=== PATIENT | male | born 1945 | race Caucasian/White ===

== ENCOUNTER 2017-03-05 07:30 | Day surgery (SDC) | payer BC, MEDICARE ==
[2017-03-04 11:49] VITALS: BMI 25.0
[2017-03-05] MEDS ORDERED: Fentanyl 100 MCG/2 ML VIAL ONE (07:34)
[2017-03-05 09:16] LABS: #Eosinphils 0.4 thou/uL (0.0-0.7); #Lymphocytes 1.4 thou/uL (1.20-3.40); #Monocytes 0.5 thou/uL (0.11-0.59); #Neutrophils 2.1 thou/uL (1.40-6.50); %Basophils 0.7 % (0.0-1.0); %Eosinophils 8.5 % (0.0-10.0); %Lymphocytes 32.2 % (21.0-51.0); %Monocytes 10.7 % (0.0-10.0); Hematocrit 44.3 % (42.0-52.0); Mean Platelet Volume 7.1 fL (7.4-10.4); Red Blood Cell (RBC) Count 4.51 mill/uL (4.70-6.10); White Blood Cell (WBC) Count 4.4 thou/uL (4.8-10.8)
[2017-03-05] MEDS ORDERED: Bupivacaine PF 0.5% 30 ML VIAL ONE (09:20)
[2017-03-05] MEDS ORDERED: Bacitracin Zinc Ointment 30 gm TUBE ONE (09:20)
[2017-03-05] MEDS ORDERED: Betamet Acet/Betamet Na Ph 30 MG/5 ML VIAL ONE (09:20)
[2017-03-05] MEDS ORDERED: Sodium Chloride 0.9% 10 ML ONE (09:57)
--- NOTE | 2017-03-06 10:22 | OP ---
DATE OF PROCEDURE: 03/05/2017 POSTOPERATIVE DIAGNOSIS: Left carpal tunnel syndrome. FINDINGS: Very tight transverse carpal ligament with early flattening without stiffening of the med bela nerve over 1 cm within the carpal canal. SURGEON: Anil Jackson M.D. ANESTHESIA: General LMA technique [place] anesthesia. COMPLICATIONS: None. Injections augmented with the following injection: 1. A 3 mL drip technique Celestone around the nerve with the flat as part. 2. A 12 mL 0.5% Marcaine keya-incisional block. INDICATIONS: Failed conservative treatment, positive diagnostic studies and exam findings. He has had this duration more than 3 years and was wanting to have asymmetrical return with early cure ____ _ pain, and then later return of normal sensation to the tips of the digits. DESCRIPTION OF PROCEDURE: After successful general LMA technique, the limb was prepped and draped. A time out was done appropriately and the limb was identified. He had 12 mL of Marcaine given gaurav g the area where a 2 cm mini incision was outlined, in line with the ring finger and a fpc betwe en Calderon's cardinal line and a point of 8 mm distal to the volar flexion crease. Then, exsanguinat ion and inflation of tourniquet 250 mmHg proceeded and opened this incision and sharp dissection wit h release of transverse carpal ligament. We spread the tissue, placed a small awl retractor, and th en opened with a N[place]alton blade the center portion of the transverse carpal ligament. Reversed the re traction, identified the distal point, opened with a combination of Nondalton blade and tenotomy scisso rs. Reversed the retraction and then visualized the entire proximal , using combination of Risa priya blade and the tenotomy scissors to release this. It was here we noticed that he had no tenosyno vitis and he had flattening of the median nerve in the 1 cm area in the middle of the carpal canal. The motor branch was a type 1 takeoff and it was in excellent condition, did not have secondary com pression. We placed 3 mL of Celestone on the flat portion of the nerve in a drip technique, deflate d tourniquet and obtained hemostasis. We then closed the incision with interrupted 4-0 nylon in a m attress pattern. Bulky dressing was applied and excellent circulation. The patient left the operat ing room without complication.
== END 2017-03-05 11:55 ==
LOC: SDC 07:30
PROVIDERS: ATTEND Orthopaedic Surgery Hand Surgery
PROC: 01N50ZZ Release Median Nerve, Open Approach (ICD-10-PCS; principal; 2017-03-05)
DX: G56.02 Carpal tunnel syndrome, left upper limb (principal); G47.33 Obstructive sleep apnea (adult) (pediatric); K21.9 Gastro-esophageal reflux disease without esophagitis; E78.5 Hyperlipidemia, unspecified; I25.10 Atherosclerotic heart disease of native coronary artery without angina pectoris; I10 Essential (primary) hypertension; M19.90 Unspecified osteoarthritis, unspecified site; Z95.5 Presence of coronary angioplasty implant and graft; Z87.891 Personal history of nicotine dependence; Z90.89 Acquired absence of other organs; Z98.890 Other specified postprocedural states; Z79.01 Long term (current) use of anticoagulants; Z79.899 Other long term (current) drug therapy
CPT/HCPCS: 36415; 85025; A4216; J0131; J0702; J3010; J3490; S0020

== ENCOUNTER 2017-07-15 00:42 | Inpatient (IN) | payer BC, MEDICARE ==
[2017-07-15 01:25] LABS: #Eosinphils 0.4 thou/uL (0.0-0.7); #Monocytes 0.6 thou/uL (0.11-0.59); #Neutrophils 2.4 thou/uL (1.40-6.50); %Basophils 0.2 % (0.0-1.0); %Eosinophils 6.7 % (0.0-10.0); %Lymphocytes 37.3 % (21.0-51.0); %Monocytes 10.5 % (0.0-10.0); %Neutrophils 45.3 % (42.0-75.0); Hemoglobin 14.5 g/dL (14.0-18.0); Mean Corpuscular HGB CONC 34.8 g/dL (32.0-36.0); Mean Corpuscular Hemoglobin 33.2 pg (27.0-31.0); Mean Corpuscular Volume 95.6 fl (80.0-94.0); Mean Platelet Volume 7.1 fL (7.4-10.4); Platelet Count 255 thou/uL (130-400); RBC Distribution Width 11.8 % (11.5-14.5); Red Blood Cell (RBC) Count 4.36 mill/uL (4.70-6.10); White Blood Cell (WBC) Count 5.4 thou/uL (4.8-10.8)
[2017-07-15 01:45] LABS: ALT (SGPT) 32 U/L (8-55); AST (SGOT) 21 U/L (5-34); Albumin 4.2 g/dL (3.4-4.8); Alkaline Phosphatase 73 U/L (40-150); Anion Gap 14 mmol/L (10-20); BUN (Urea Nitrogen) 17 mg/dL (8.4-25.7); Bilirubin, Total 1.3 mg/dL (0.2-1.2); Calc. Creatinine Clearance 0 mL/min (70-130); Calcium 9.4 mg/dL (7.8-10.44); Carbon Dioxide 24 mmol/L (23-31); Chloride 103 mmol/L (98-107); Estimated GFR-MDRD Greater than 90; Globulin 2.8 g/dL (2.4-3.5); Glucose 155 mg/dL (83-110); Potassium 3.9 mmol/L (3.5-5.1); Sodium 137 mmol/L (136-145)
[2017-07-15 01:50] LABS: CKMB 2.2 ng/mL (0-6.6); Troponin I Less than 0.010 ng/mL (< 0.028)
[2017-07-15] MEDS ORDERED: Metoprolol Tartrate 5 MG/5 ML VIAL ONE (03:06)
[2017-07-15] MEDS ORDERED: Adenosine 6 MG/2 ML VIAL ONE ×2 (05:02→05:03)
[2017-07-15 05:49] LABS: Magnesium 2.1 mg/dL (1.6-2.6); Phosphorus 3.2 mg/dL (2.3-4.7)
[2017-07-15 05:54] LABS: Troponin I 0.029 ng/mL (< 0.028)
[2017-07-15] MEDS ORDERED: Mag-Al 1200 mg/1200 mg/30 ML UDCUP PO PRN (06:46)
[2017-07-15] MEDS ORDERED: Loperamide HCl 2 MG CAP PO PRN (06:46)
[2017-07-15] MEDS ORDERED: Chloraseptic Spray 180 ml Bottle PO PRN (06:46)
[2017-07-15] MEDS ORDERED: Milk Of Magnesia 30 ML UDCUP PO PRN (06:46)
[2017-07-15] MEDS ORDERED: Diabetic Tussin 200 MG/10 ML UDCUP PO PRN (06:46)
[2017-07-15] MEDS ORDERED: Sodium Chloride 0.65% Nasal 44 ML BOT EA NARE PRN (06:46)
[2017-07-15] MEDS ORDERED: Ondansetron HCl/PF 4 MG/2 ML Vial IVP PRN (06:46)
[2017-07-15] MEDS ORDERED: Nitroglycerin 0.4 MG TAB (25 Tab Bottle) SL PRN (06:46)
[2017-07-15] MEDS ORDERED: HYDROcodone/Acetaminophen 5/325 mg Tablet PO PRN (06:46)
[2017-07-15] MEDS ORDERED: Acetaminophen 325 MG TAB PO PRN (06:46)
[2017-07-15] MEDS ORDERED: Eucerin (Mineral Oil/Petrolatum,White) 30 gm Jar TOP PRN (06:46)
[2017-07-15] MEDS ORDERED: Ondansetron ODT 4 MG TAB PO PRN (06:46)
[2017-07-15] MEDS ORDERED: Artificial Tears 18 DROP/0.9 ML EA EYE PRN (06:46)
[2017-07-15] MEDS ORDERED: Senokot 8.6 MG TAB PO PRN (06:46)
[2017-07-15] MEDS ORDERED: Zolpidem Tartrate 5 MG TAB PO PRN (06:46)
[2017-07-15] MEDS ORDERED: hydrALAZINE 20 MG/ML VIAL SLOW IVP PRN (06:46)
[2017-07-15] MEDS ORDERED: Loratadine 10 MG TAB PO PRN (06:46)
[2017-07-15] MEDS ORDERED: Diltiazem 125 MG in Sodium Chloride 0.9% 100 ML IVPB SCH (07:00)
--- NOTE | 2017-07-15 07:50 | RAD ---
PORTABLE CHEST 1 VIEW: DATE: 07/15/17. TIME: 12:47 a.m. HISTORY: Palpitations. FINDINGS: Comparison is made with the exam of 02/11/13. The heart size is normal. No confluent areas of consolidation, pneumothorax, or pleural effusions ar e seen. IMPRESSION: No radiographic evidence of acute cardiopulmonary process. POS: [facility]
[2017-07-15] MEDS ORDERED: Enoxaparin Sodium 40 MG/0.4 ML SYRINGE ONE (08:39)
[2017-07-15 08:42] LABS: Troponin I 0.026 ng/mL (< 0.028)
[2017-07-15] MEDS ORDERED: Famotidine 20 MG TAB PO SCH (09:00)
[2017-07-15] MEDS ORDERED: Clopidogrel Bisulfate 75 MG TAB PO SCH (09:00)
[2017-07-15] MEDS ORDERED: Enoxaparin Sodium 40 MG/0.4 ML SYRINGE SC SCH (09:00)
--- NOTE | 2017-07-15 09:04 | CT ---
PRELIMINARY REPORT/[facility]/EMERGENCY AFTER HOURS PROCEDURE: EXAM: CT Angiography Chest With Intravenous Contrast CLINICAL HISTORY: 72 years old, male; Chest pain; C/O palpitations onset around 2230. Described as pounding hard, can h ear his hearbeat in his ears. checked his hr and it was 180. Pt reports some chest tightness wit h earlier pain in his l shoulder and back that has subsided at this time. Pt was recently dx with dick young, took his last abx on wednesday. TECHNIQUE: Axial computed tomographic angiography images of the chest with intravenous contrast using pulmonary embolism protocol. MIP reconstructed images were created and reviewed. Oblique reformatted images were created and reviewed. COMPARISON: No relevant prior studies available. FINDINGS: Pulmonary arteries: No evidence of pulmonary embolism. Aorta: Normal caliber thoracic aorta without dissection or aneurysm. Lungs: No alveolar infiltrate. A few scattered lung bulla. No mass. Pleural space: No pleural fluid collection. No pneumothorax. Heart: Coronary artery calcification. No pericardial effusion. No evidence of RV dysfunction. Bones/joints: Spinal degenerative changes. No acute fracture. No dislocation. Soft tissues: Unremarkable. Lymph nodes: No pathologically enlarged lymph nodes. IMPRESSION: 1. No evidence of pulmonary embolism. 2. No alveolar infiltrate. 3. No pleural fluid collection. Thank you for allowing us to participate in the care of your patient. Dictated and Authenticated by: Pipe Birch MD 07/15/2017 3:52 AM Central Time ([place] & [place]) FINAL REPORT CT PULMONARY ANGIOGRAM WITH IV CONTRAST AND 3D POSTPROCESSING: Date: 07/15/17 FINDINGS/IMPRESSION: I agree with the preliminary report given by Dr. Pipe Birch of [facility]. POS: [facility]
[2017-07-15] MEDS ORDERED: Sodium Chloride 0.9% 1,000 ML IV SCH (09:30)
--- NOTE | 2017-07-15 10:37 | HP ---
PRIMARY CARE PHYSICIAN: Dr. Brennan Valle PRIMARY RN ACUTE: Dr. Oh REASON FOR ADMISSION: Acute SVT/atrial fibrillation. HISTORY OF PRESENT ILLNESS: A 72-year-old male who has a history of hypertension and dyslipidemia wh o was experiencing palpitations before going to sleep around 10:30. He was feeling a pounding heart. He was feeling his heart rate in his ears and head. He called his who is a nurse who checked his vitals. At that time his pulse was 180. He was also experiencing chest tightness and palpitatio ns and dizziness. He denies an incomplete syncope. He denies any shortness of breath. He denies an y associated nausea, vomiting, diaphoresis. The patient denies any excessive caffeinated products. He does not take any beta lynette or calcium channel lynette medication, but he takes blood pressure medication. The patient was recently diagnos ed with walking pneumonia and he took some antibiotic therapy which he has finished. The patient is feeling much better. He denies any fever or chills. He denies any sore throat. He denies any runny nose. He denies any constipation, diarrhea, melena or hematochezia. He denies any UTI symptoms. T he patient feels by himself pretty much very active and healthy. When he came to the emergency room, he was having sinus tachycardia. In the emergency room, the marvin ent was given adenosine 6 mg. He was given a total of 4 liters of IV fluid and he was also given met oprolol 5 mg IV push and subsequently low dose of Cardizem drip was started. Initially, the ER physician suspected SVT, but when I saw this patient in the morning at that time, I noted that his heart rate was irregular and it was more towards atrial fibrillation/flutter. His he art rate was pretty much fluctuating from 120-130s and that is why he was given Cardizem drip. When I saw at that time, the patient was asymptomatic. PAST MEDICAL HISTORY: Hypertension, dyslipidemia, coronary artery disease. PAST SURGICAL HISTORY: Cardiac catheterization with stent placement x2 about 10 years ago, hernia re pair, left shoulder repair, left knee surgery. PAST PSYCHIATRIC HISTORY: Reviewed and negative. SOCIAL HISTORY: The patient is . He lives at home. He drinks alcohol socially. He denies a ny smoking. He denies illicit drug abuse. He lives at home with family. FAMILY HISTORY: No strong family history of premature coronary artery disease, stroke or cancer. ALLERGIES: No known drug allergies. CURRENT HOME MEDICATIONS: Candesartan 16 mg p.o. daily, Dexilant 60 mg p.o. daily, Plavix 75 mg p.o. daily, Lipitor 40 mg p.o. daily. REVIEW OF SYSTEMS: The following complete review of systems was negative, unless otherwise mentioned in the HPI or below: Constitutional: Weight loss or gain, ability to conduct usual activities. Skin: Rash, itching. Eyes: Double vision, pain. ENT/Mouth: Nose bleeding, neck stiffness, pain, tenderness. Cardiovascular: Palpitations, dyspnea on exertion, orthopnea. Respiratory: Shortness of breath, wheezing, cough, hemoptysis, fever or night sweats. Gastrointestinal: Poor appetite, abdominal pain, heartburn, nausea, vomiting, constipation, or diarrhea. Genitourinary: Urgency, frequency, dysuria, nocturia. Musculoskeletal: Pain, swelling. Neurologic/Psychiatric: Anxiety, depression. Allergy/Immunologic: Skin rash, bleeding tendency. Please see my HPI for pertinent positives and negatives. All other review of systems reviewed and ne gative except as mentioned in the HPI. EMERGENCY ROOM COURSE: Patient is given IV fluid 4 liter, metoprolol 5 mg, adenosine 6 mg and Cardi zem drip. PHYSICAL EXAMINATION: VITAL SIGNS: On arrival, blood pressure 122/75, pulse 142, respiratory rate 18, temperature 98.2, sa turation 95% on room air, weight 90.7 kilograms. GENERAL: The patient is currently alert, awake, no obvious acute distress. HEENT: Head; normocephalic, atraumatic. Eyes: Pupils round, reactive to light. Extraocular muscle s intact. ENT: Oropharynx within normal limits. Moist mucous membranes. No oral lesions. No phar yngeal erythema or exudate. NECK: Supple, no JVD, no thyromegaly, no carotid bruit, no jugular venous distention. LUNGS: Clear to auscultation without any rhonchi or rales. CARDIAC: S1, S2 appears irregular, tachycardia, no murmur, no gallop, no rub. ABDOMEN: Soft, bowel sounds present, nontender, nondistended. No organomegaly, no mass, no suprapub ic tenderness. BACK: Unremarkable, no CVA tenderness. EXTREMITIES: Upper extremities; passive movement of all joints are normal. Lower extremities; no ed liset. Good peripheral pulsation. SKIN: No skin rash. HEMATOLOGICAL: No lymphadenopathy. NEUROLOGIC: Nonfocal examination. The patient moves all 4 limbs. Plantar bilateral flexor. PSYCHIATRIC: Normal affect. SIGNIFICANT LABS: The initial EKG done in the emergency room shows sinus tachycardia. CT angio nega tive for pulmonary embolism. Chest x-ray based on my review, no acute cardiopulmonary process. CBC: WBC 5.4, hemoglobin 14.5, platelet 255. BMP; sodium 137, potassium 3.9, chloride 103, carbon dioxide 24, anion gap 14, BUN 17, creatinine 0.7 7, glucose 155, calcium 9.4, phosphorus 3.2, magnesium 2.1. LFTs: AST 21, ALT 32, alkaline phosphatase 73, albumin 4.2, TSH 2.21. D-dimer less than 0.27. Trop onin I 0.010 then 0.029 and then 0.026. ASSESSMENT AND PLAN: 1. Palpitations, likely due to atrial tachyarrhythmia, suspected for supraventricular tachycardia/guerrero praventricular tachycardia with aberrancy or underlying atrial flutter/atrial fibrillation. This pat ient currently, treated in the emergency room, his rate is under control. We will monitor on telemet ry floor. Cardiology will be consulted. We will continue slow rate Cardizem drip to maintain rate c ontrol. The patient will need electrophysiologic evaluation. We will do serial cardiac enzymes x3 t o rule out acute coronary syndrome and echocardiography will be obtained and Cardiology will be consu lted. 2. Elevated troponin, likely due to demand ischemia, 2 sets are negative and 1 set only indeterminat e range. Echocardiography is going to be obtained. We will continue aspirin 325 mg p.o. daily. We will check lipid profile tomorrow morning. 3. Hypertension, but currently low blood pressure. If blood pressure permits, then we will continue Atacand 16 mg p.o. daily. 4. Dyslipidemia, continue Lipitor 40 mg p.o. at bedtime and check lipid profile tomorrow morning. 5. Coronary artery disease with stent. Continue Plavix 75 mg p.o. daily. 6. Gastroesophageal reflux disease. Continue Protonix 40 mg p.o. daily. CODE STATUS: The patient is FULL CODE. The patient's is surrogate decision maker. Disposition plan based on clinical course and cardiology recommendation. We are expecting patient's stay in hospital more than 2 midnights. Plan of care discussed with the patient in detail.
[2017-07-15 10:50] VITALS: BMI 27.6
[2017-07-15] MEDS: Multivit, Therapeutic 1 TAB PO SCH (10:58)
[2017-07-15] MEDS: Fish Oil 1,000 MG CAP PO SCH ×2 (10:58→20:20)
--- NOTE | 2017-07-15 11:25 | CON ---
DATE OF CONSULTATION: 07/15/2017 HISTORY OF PRESENT ILLNESS: The patient is a pleasant 72-year-old gentleman who presented with acute onset of palpitations. The patient has a previous history of coronary artery disease. He underwent PTCA and stent placement in 2005. The patient has done well on medical therapy. He states he acutely developed rapid palpitations. He noted his heart rate was elevated. The patient reported having mild dizziness. The patient did feel mildly dyspneic. PAST MEDICAL HISTORY: 1. Coronary artery disease. 2. Dyslipidemia. 3. Hyperglycemia. PAST SURGICAL HISTORY: Knee surgery, shoulder surgery, hernia repair, and tonsillectomy. SOCIAL HISTORY: He is a nonsmoker. He denies consuming excessive amounts of alcohol. FAMILY HISTORY: There is no strong family history of coronary artery disease. ALLERGIES: None. MEDICATIONS ON ADMISSION: Atacand 16 daily, Dexilant 60 daily, Plavix 75 mg daily, and Lipitor 40 at bedtime. REVIEW OF SYSTEMS: A 10-point system unremarkable. No history of easy bruising or bleeding, bright red blood per rectum. PHYSICAL EXAMINATION: GENERAL: This is a well-developed gentleman in no acute distress. VITAL SIGNS: Blood pressure was 107/77, heart rate is 70, irregular. NECK: Showed no jugular venous distention, no carotid bruits. LUNGS: Clear to auscultation. HEART: Irregular rate and rhythm with a normal S1, S2 with no murmurs. ABDOMEN: Soft, nontender. EXTREMITIES: No edema. SKIN: Warm and dry. NEUROLOGIC: Nonfocal. VASCULAR: Radial pulses are 2+. LABORATORY DATA: White blood count 5.4, hemoglobin 14.5, hematocrit 41.7, platelets 255. His sodium was 137, potassium 3.9, chloride 103, bicarbonate 24 , BUN 17, creatinine 0.77, glucose 155. Troponin was 0.026. TSH is 2.21. EKG revealed him to have atrial flutter with Q-waves suggestive of possible previous inferior infarct. IMPRESSION: 1. New onset atrial flutter/fibrillation. 2. History of coronary artery disease, status post percutaneous transluminal coronary angioplasty and stent placement. 3. Dyslipidemia. This gentleman presents with new onset atrial fibrillation. The patient has a CHADS-VASc score of 3. From a cardiac standpoint, would recommend electrical cardioversion. We will start the patient on beta lynette therapy. We will follow this patient with you through his hospitalization. LIBRADO
[2017-07-15] MEDS ORDERED: PHENYLEPHRINE-NS 100 MCG/ML 10 ML SYRINGE ONE (13:01)
[2017-07-15] MEDS ORDERED: PROPOFOL 200 MG/20 ML VIAL ONE (13:01)
[2017-07-15] MEDS ORDERED: ePHEDrine/0.9% NaCl/PF SYRINGE 50 mg/10 ml ONE (13:01)
[2017-07-15] MEDS ORDERED: ISOVUE-370 76%-LOCM 1 ML ONE (13:23)
[2017-07-15] MEDS ORDERED: PROPOFOL 20 ML ONE (14:21)
--- NOTE | 2017-07-15 15:36 | ECHO ---
TRANSESOPHAGEAL ECHOCARDIOGRAM: DATE OF PROCEDURE: 07/15/17 INDICATION: 73-year-old gentleman with paroxysmal atrial fibrillation. DESCRIPTION OF PROCEDURE: The patient was taken to the PACU. The patient was sedated by anesthesiology. A transesophageal probe was placed in the distal esophagus and stomach. Echocardiographic images were obtained. The transesophageal probe was removed. FINDINGS: 1. Normal left ventricular systolic function. 2. Left atrial enlargement. 3. Normal mitral and aortic valves. 4. Mild mitral regurgitation. 5. Mild tricuspid regurgitation. 6. No thrombus in left atrium or left atrial appendage. 7. Atherosclerotic debris in the descending aorta. IMPRESSION: No formed thrombus in the left atrium or left atrial appendage.
--- NOTE | 2017-07-15 15:39 | OP ---
PROCEDURE NOTE: Date: 07/15/17 PROCEDURE: Electrical cardioversion. INDICATION: This is a 72-year-old gentleman with paroxysmal atrial fibrillation. PROCEDURE DETAILS: The patient was taken to the PACU. The patient was sedated by anesthesiology. The patient was shocked with 200 joules of synchronized electricity. The patient converted to normal sinus rhythm. IMPRESSION: Successful electrical cardioversion.
[2017-07-15] MEDS: Apixaban 5 MG TAB PO SCH (20:20)
[2017-07-15] MEDS ORDERED: Atorvastatin Calcium 20 MG TAB PO SCH (21:00)
[2017-07-15] MEDS ORDERED: GLUCOSAMINE HCL 500 MG PO SCH (21:00)
[2017-07-16 05:23] LABS: #Eosinphils 0.2 thou/uL (0.0-0.7); #Lymphocytes 1.1 thou/uL (1.20-3.40); #Monocytes 0.4 thou/uL (0.11-0.59); #Neutrophils 1.8 thou/uL (1.40-6.50); %Basophils 0.2 % (0.0-1.0); %Eosinophils 6.4 % (0.0-10.0); %Lymphocytes 30.4 % (21.0-51.0); %Monocytes 12.2 % (0.0-10.0); %Neutrophils 50.9 % (42.0-75.0); Hemoglobin 12.8 g/dL (14.0-18.0); Mean Corpuscular HGB CONC 33.4 g/dL (32.0-36.0); Mean Corpuscular Hemoglobin 32.7 pg (27.0-31.0); Mean Corpuscular Volume 98.2 fl (80.0-94.0); Mean Platelet Volume 7.2 fL (7.4-10.4); Platelet Count 202 thou/uL (130-400); Red Blood Cell (RBC) Count 3.92 mill/uL (4.70-6.10); White Blood Cell (WBC) Count 3.6 thou/uL (4.8-10.8)
[2017-07-16 05:35] LABS: Anion Gap 10 mmol/L (10-20); BUN (Urea Nitrogen) 9 mg/dL (8.4-25.7); Calc. Creatinine Clearance 132 mL/min (70-130); Calcium 8.7 mg/dL (7.8-10.44); Carbon Dioxide 27 mmol/L (23-31); Cardiac Risk 3.7 (Less than 4.5); Chloride 105 mmol/L (98-107); Cholesterol 114 mg/dl (< 200 Desired); Estimated GFR-MDRD Greater than 90; Glucose 116 mg/dL (83-110); HDL Cholesterol 31 mg/dL (>60 Neg Risk); LDL Cholesterol, Calculated 49 mg/dL; Sodium 138 mmol/L (136-145); Triglycerides 171 mg/dL (Less than 150)
[2017-07-16] MEDS ORDERED: Aspirin 325 mg Enteric Coated Tablet PO SCH (09:00)
[2017-07-16] MEDS ORDERED: Aspirin 81 mg Enteric Coated Tablet PO SCH (09:00)
--- NOTE | 2017-07-16 09:11 | PDOC.PN ---
- Subjective Encounter Start Date: 07/16/17 Encounter Start Time: 07:30 -: old records requested/rev Patient seen and examined. No new complaints. No overnight events - Objective Resuscitation Status: Resuscitation Status FULL:Full Resuscitation MAR Reviewed: Yes Vital Signs & Weight: Vital Signs (12 hours) Temp Pulse Resp BP Pulse Ox 07/16/17 08:00 97.9 F 81 16 122/73 07/16/17 03:23 97.6 F 72 12 105/63 93 L I&O: 07/15/17 07/16/17 07/17/17 06:59 06:59 06:59 Intake Total 780 Output Total 950 Balance -170 Result Diagrams: 07/16/17 04:07 07/16/17 04:07 Radiology Reviewed by me: Yes (echo-normal) EKG Reviewed by me: Yes (nSR) Phys Exam - Physical Examination Constitutional: NAD HEENT: PERRLA, moist MMs, sclera anicteric Neck: no JVD, supple Respiratory: no wheezing, no rales, no rhonchi Cardiovascular: RRR, no significant murmur, no rub Gastrointestinal: soft, non-tender, no distention, positive bowel sounds Musculoskeletal: no edema, pulses present Neurological: non-focal, normal sensation, moves all 4 limbs Lymphatic: no nodes Psychiatric: normal affect, A&O x 3 Skin: no rash, normal turgor Dx/Plan (1) Atrial fibrillation status post cardioversion Code(s): I48.91 - UNSPECIFIED ATRIAL FIBRILLATION Status: Acute (2) Demand ischemia Code(s): I24.8 - OTHER FORMS OF ACUTE ISCHEMIC HEART DISEASE Status: Acute (3) New onset atrial fibrillation Code(s): I48.91 - UNSPECIFIED ATRIAL FIBRILLATION Status: Acute (4) CAD (coronary artery disease) Code(s): I25.10 - ATHSCL HEART DISEASE OF [place] CORONARY ARTERY W/O ANG PCTRS Status: Chronic (5) Dyslipidemia Code(s): E78.5 - HYPERLIPIDEMIA, UNSPECIFIED Status: Chronic (6) Hypertension Code(s): I10 - ESSENTIAL (PRIMARY) HYPERTENSION Status: Chronic - Plan cont current plan of care, plan discussed w/ family * continue Elliquis and Toprol XL * discharge home if cardiology OK * medication reviewed as below * symptomatic treatment. Review of Systems - Review of Systems ENT: negative: Ear Pain, Ear Discharge, Nose Pain, Nose Discharge, Nose Congestion, Mouth Pain, Mouth Swelling, Throat Pain, Throat Swelling, Other Respiratory: negative: Cough, Dry, Shortness of Breath, Hemoptysis, SOB with Excertion, Pleuritic Pain, Sputum, Wheezing Cardiovascular: negative: chest pain, palpitations, orthopnea, paroxysmal nocturnal dyspnea, edema, light headedness, other Gastrointestinal: negative: Nausea, Vomiting, Abdominal Pain, Diarrhea, Constipation, Melena, Hematochezia, Other Genitourinary: negative: Dysuria, Frequency, Incontinence, Hematuria, Retention , Other Musculoskeletal: negative: Neck Pain, Shoulder Pain, Arm Pain, Back Pain, Hand Pain, Leg Pain, Foot Pain, Other Skin: negative: Rash, Lesions, Brendon, Bruising, Other - Medications/Allergies Allergies/Adverse Reactions: Allergies Allergy/AdvReac Type Severity Reaction Status Date / Time No Known Allergies Allergy Verified 07/15/17 11:47 Medications: Current Medications Acetaminophen (Tylenol) 650 mg PO Q4H PRN PRN Reason: Headache/Fever or Pain Last Admin: 07/15/17 20:23 Dose: 650 mg Hydrocodone Bitart/Acetaminophen ([place] 5/325) 1 tab PO Q4H PRN PRN Reason: Moderate Pain (4-6) Al Hydroxide/Mg Hydroxide (Maalox) 30 ml PO Q6H PRN PRN Reason: Heartburn or Indigestion Apixaban (Eliquis) 5 mg PO BID [facility] Last Admin: 07/15/17 20:20 Dose: 5 mg Artificial Tears (Tears Naturale) 0 drop EA EYE PRN PRN PRN Reason: Dry Eyes Aspirin (Ecotrin) 81 mg PO DAILY [facility] Atorvastatin Calcium (Lipitor) 40 mg PO HS [facility] Last Admin: 07/15/17 20:20 Dose: 40 mg Candesartan Cilexetil (Atacand) 16 mg PO QAM [facility] Last Admin: 07/15/17 10:58 Dose: Not Given Fish Oil (Fish Oil) 1,000 mg PO BID [facility] Last Admin: 07/15/17 20:20 Dose: 1,000 mg Guaifenesin (Robitussin Sf) 200 mg PO Q4H PRN PRN Reason: Cough Hydralazine HCl (Apresoline) 10 mg SLOW IVP Q4H PRN PRN Reason: Systolic BP > 180 Loperamide HCl (Imodium) 2 mg PO PRN PRN PRN Reason: Diarrhea/Loose Stools Loratadine (Claritin) 10 mg PO DAILYPRN PRN PRN Reason: Sinus Symptoms Magnesium Hydroxide (Milk Of Magnesium) 30 ml PO DAILYPRN PRN PRN Reason: Constipation Metoprolol Succinate (Toprol Xl) 25 mg PO DAILY [facility] Mineral Oil/White Petrolatum (Eucerin Cream) 0 gm TOP BIDPRN PRN PRN Reason: Dry Skin Multivitamins (Theragran) 1 tab PO DAILY [facility] Last Admin: 07/15/17 10:58 Dose: Not Given Nitroglycerin (Nitrostat) 0.4 mg SL Q5MIN PRN PRN Reason: Chest Pain Ondansetron HCl (Zofran Odt) 4 mg PO Q6H PRN PRN Reason: Nausea/Vomiting Ondansetron HCl (Zofran) 4 mg IVP Q6H PRN PRN Reason: Nausea/Vomiting Pantoprazole Sodium (Protonix) 40 mg PO DAILY [facility] Phenol (Chloraseptic [place] 180 Ml Bot) 0 ml PO PRN PRN PRN Reason: Sore Throat Senna (Senokot) 2 tab PO HSPRN PRN PRN Reason: Constipation Sodium Chloride ([place] Nasal [place] 0.65%) 0 ml EA NARE QIDPRN PRN PRN Reason: Nasal Congestion Sodium Chloride (Flush - Normal Saline) 10 ml IVF Q12HR [facility] Last Admin: 07/15/17 20:20 Dose: 10 ml Sodium Chloride (Flush - Normal Saline) 10 ml IVF PRN PRN PRN Reason: Saline Flush Zolpidem Tartrate (Ambien) 5 mg PO HSPRN PRN PRN Reason: Insomnia
[2017-07-16] MEDS: Apixaban 5 MG TAB PO SCH (09:26)
[2017-07-16] MEDS: Multivit, Therapeutic 1 TAB PO SCH (09:27)
[2017-07-16] MEDS: Fish Oil 1,000 MG CAP PO SCH (09:27)
--- NOTE | 2017-07-16 10:20 | DIS ---
PRIMARY CARE PHYSICIAN: Dr. Brennan Valle DATE OF ADMISSION: 07/15/2017 DATE OF DISCHARGE: 07/16/2017 DISCHARGE DISPOSITION: Home. PRIMARY DISCHARGE DIAGNOSES: 1. New onset atrial fibrillation, converted to sinus rhythm after cardioversion. 2. Demand ischemia. SECONDARY DISCHARGE DIAGNOSES: Hypertension, dyslipidemia, coronary artery disease. PRIMARY PROCEDURE/OPERATION: Cardioversion. A transesophageal echocardiography. RADIOLOGICAL INVESTIGATION: CT angio negative for PE. Chest x-ray normal. SIGNIFICANT LABS: WBC 3.6, hemoglobin 12.8, platelets 202. D-dimer less than 0.27. Sodium 138, potassium 4.0, BUN 9, creatinine 0.70, calcium 8.7, LDL 49. TSH 2.21. LFTs normal. Electrolytes normal. DISCHARGE MEDICATIONS: Eliquis 5 mg p.o. b.i.d., Toprol-XL 50 mg p.o. daily, multivitamin 1 tablet p.o. daily, glucosamine 500 mg p.o. b.i.d., fish oil 1000 mg p.o. daily, Dexilant 60 mg p.o. daily, Lipitor 40 mg p.o. at bedtime. DISCONTINUED MEDICATIONS: Atacand 60 mg p.o. daily, Plavix 75 mg p.o. daily ( these two medications and can be restarted in future if blood pressure going up and Cardiology wants to continue, but at this point, this medication discontinued by Cardiology as we started on Eliquis therapy. CONTRAINDICATIONS: None. CODE STATUS: FULL CODE. INPATIENT CONSULTANTS: Dr. Oh was consulted while in hospital. TEST RESULTS PENDING ON DISCHARGE: None. ALLERGIES: No known drug allergy. DISCHARGE PLAN: Post hospital, the patient will follow up with Dr. Oh as instructed. HOSPITAL COURSE: A 72-year-old male who was admitted for acute onset of palpitations. At home his heart rate was about 180. When he came to the ER at that time he only had sinus tachycardia, but he was given adenosine, Cardizem in the emergency room. When we saw this patient at that time we noted that he was having atrial fibrillation with variable rate. The patient required transesophageal echocardiography and subsequently DC cardioversion and he was converted to normal sinus rhythm. Cardiology recommended to continue Eliquis and Toprol-XL. As this patient's blood pressure runs on the lower side and that is why we advised to hold Atacand therapy. He was on Plavix before, that was also discontinued because now he is started on Eliquis therapy. Overall, this patient is doing fantastic. He is doing very well. Plan of care discussed with the patient's family member. The patient is seen and examined at bedside today. Please see my progress note from today for further details. MTDD
[2017-07-16] MEDS ORDERED: Metoprolol Tartrate 25 MG TAB PO SCH (13:00)
[2017-07-16 13:24] VITALS: BP 137/78; TEMP 97.6
--- NOTE | 2017-07-18 09:19 | EKG ---
Test Reason : Blood Pressure : / mmHG Vent. Rate : 068 BPM Atrial Rate : 068 BPM P-R Int : 162 ms QRS Dur : 090 ms QT Int : 402 ms P-R-T Axes : 066 020 049 degrees QTc Int : 427 ms Normal sinus rhythm Normal ECG When compared with ECG of 16-JUL-2017 08:46, (Unconfirmed) QRS duration has decreased ST no longer elevated in Anterior leads Nonspecific T wave abnormality no longer evident in Lateral leads QT has shortened Confirmed by BERNA YANEZ ([id number]) on 07/18/2017 9:19:22 AM Referred By: ESDRAS Confirmed By:BENRA YANEZ
--- NOTE | 2017-09-08 15:08 | EKG ---
Test Reason : Blood Pressure : / mmHG Vent. Rate : 142 BPM Atrial Rate : 142 BPM P-R Int : 118 ms QRS Dur : 082 ms QT Int : 280 ms P-R-T Axes : 042 037 079 degrees QTc Int : 430 ms Sinus tachycardia Cannot rule out Inferior infarct , age undetermined Abnormal ECG Confirmed by KAUSHAL VILLARREAL D.O. ([id number]), book editor FRANK JOHN ([id number]) on 09/08/2017 3:07:19 PM Referred By: Confirmed By:KAUSHAL VILLARREAL D.O.
== END 2017-07-16 14:22 | disposition home or self-care (01) | DRG 309 ==
LOC: ERS 00:42 → ERHOLD 05:13 → 2NO 09:11
PROVIDERS: ADMIT Internal Medicine; ATTEND Internal Medicine
PROC: 5A2204Z Restoration of Cardiac Rhythm, Single (ICD-10-PCS; principal; 2017-07-15)
PROC: B24BZZ4 Ultrasonography of Heart with Aorta, Transesophageal (ICD-10-PCS; 2017-07-15)
DX: I48.0 Paroxysmal atrial fibrillation (principal); I24.8 Other forms of acute ischemic heart disease; I10 Essential (primary) hypertension; E78.5 Hyperlipidemia, unspecified; I25.10 Atherosclerotic heart disease of native coronary artery without angina pectoris; K21.9 Gastro-esophageal reflux disease without esophagitis
CPT/HCPCS: 36415; 71045; 71275; 80048; 80053; 80061; 82553; 83735; 84100; 84443; 84484; 85025; 85379; 92960; 93005; 93010; 93312; 94760; 96361; 96374; 96375; A4216; J0153; J1650; J2704; J7050

== ENCOUNTER 2017-09-14 15:26 | Outpatient (CLI) | payer BC, MEDICARE ==
[2017-09-14 16:32] LABS: #Eosinphils 0.3 thou/uL (0.0-0.7); #Lymphocytes 1.6 thou/uL (1.20-3.40); #Monocytes 0.6 thou/uL (0.11-0.59); #Neutrophils 2.8 thou/uL (1.40-6.50); %Basophils 0.1 % (0.0-1.0); %Eosinophils 6.3 % (0.0-10.0); %Lymphocytes 30.5 % (21.0-51.0); %Monocytes 10.4 % (0.0-10.0); %Neutrophils 52.7 % (42.0-75.0); Hemoglobin 14.6 g/dL (14.0-18.0); Mean Corpuscular HGB CONC 35.2 g/dL (32.0-36.0); Mean Corpuscular Hemoglobin 33.2 pg (27.0-31.0); Mean Corpuscular Volume 94.3 fl (80.0-94.0); Platelet Count 268 thou/uL (130-400); RBC Distribution Width 11.9 % (11.5-14.5); Red Blood Cell (RBC) Count 4.41 mill/uL (4.70-6.10); White Blood Cell (WBC) Count 5.3 thou/uL (4.8-10.8)
[2017-09-14 16:52] LABS: Anion Gap 9 mmol/L (10-20); BUN (Urea Nitrogen) 18 mg/dL (8.4-25.7); Calc. Creatinine Clearance 0 mL/min (70-130); Carbon Dioxide 29 mmol/L (23-31); Chloride 102 mmol/L (98-107); Estimated GFR-MDRD Greater than 90; Glucose 199 mg/dL (83-110); Sodium 136 mmol/L (136-145)
== END 2017-09-14 15:27 | disposition home or self-care (01) ==
LOC: LABBT 15:26
PROVIDERS: ATTEND Orthopaedic Surgery Hand Surgery
DX: Z01.812 Encounter for preprocedural laboratory examination (principal); M65.312 Trigger thumb, left thumb
CPT/HCPCS: 80048; 85025

== ENCOUNTER 2017-09-15 12:11 | Day surgery (SDC) | payer BC, MEDICARE ==
[2017-09-14 15:48] VITALS: BMI 26.0
[2017-09-15] MEDS ORDERED: PROPOFOL 200 MG/20 ML VIAL ONE (15:27)
[2017-09-15] MEDS ORDERED: Lidocaine 1% PF 5 ML VIAL ONE (15:27)
[2017-09-15] MEDS ORDERED: CEFAZOLIN/Water 2 GM/20 ML SYRINGE ONE (16:39)
[2017-09-15] MEDS ORDERED: Midazolam HCl 2 mg/2 ml Vial ONE ×2 (16:42→16:47)
[2017-09-15] MEDS ORDERED: Fentanyl 100 MCG/2 ML VIAL ONE ×2 (16:47→17:05)
[2017-09-15] MEDS ORDERED: Betamet Acet/Betamet Na Ph 30 MG/5 ML VIAL ONE (16:56)
[2017-09-15] MEDS ORDERED: Bacitracin Zinc Ointment 30 gm TUBE ONE (16:56)
[2017-09-15] MEDS ORDERED: Bupivacaine PF 0.5% 30 ML VIAL ONE (16:56)
[2017-09-15] MEDS ORDERED: Ketorolac Tromethamine 30 MG/ML VIAL ONE (18:15)
--- NOTE | 2017-09-16 00:14 | OP ---
DATE OF SURGERY: 09/15/2017 POSTOPERATIVE DIAGNOSIS: Left thumb trigger digit. POSTOPERATIVE DIAGNOSIS: Left thumb trigger digit. PROCEDURES PERFORMED: 1. Left-thumb trigger digit release. 2. Celestone injection, left thumb flexor tendon sheath. SPECIMEN: None. ESTIMATED BLOOD LOSS: 5 mL. TOURNIQUET TIME: 14 minutes. SURGEON: Anil Jackson MD. ANESTHESIA: General, LMA technique augmented by 8 mL of 0.5% thumb level metacarpophalangeal block, 0.5% Marcaine with epinephrine. DESCRIPTION OF PROCEDURE: After successful general endotracheal anesthesia, the limb was prepped and draped. Injection was given as listed above. Timeout was done appropriately. Limb was exsanguinat ed, tourniquet inflated to 250 mmHg pressure. We then made a Shannon type incision centered over the flexion crease with a masses felt. Carried through skin, subcutaneous tissue and immediately identif ied the radial and ulnar digital nerves and protected them. The retinaculum was very thick over at A 1 yusef was just released, 1-mm area was resected, it will not come back, we lifted the tendon up. There were no masses and no tenosynovitis. Tourniquet was inflated. Hemostasis obtained closed wound with interrupted 4-0 nylon and Bulky dress ing. The patient left the operating room without complications.
== END 2017-09-15 19:30 | disposition home or self-care (01) ==
LOC: SDC 12:11
PROVIDERS: ATTEND Orthopaedic Surgery Hand Surgery
PROC: 0LN80ZZ Release Left Hand Tendon, Open Approach (ICD-10-PCS; principal; 2017-09-15)
PROC: 3E0233Z Introduction of Anti-inflammatory into Muscle, Percutaneous Approach (ICD-10-PCS; principal; 2017-09-15)
DX: M65.312 Trigger thumb, left thumb (principal); I25.10 Atherosclerotic heart disease of native coronary artery without angina pectoris; E78.5 Hyperlipidemia, unspecified; I10 Essential (primary) hypertension; M19.90 Unspecified osteoarthritis, unspecified site; K21.9 Gastro-esophageal reflux disease without esophagitis; F43.10 Post-traumatic stress disorder, unspecified; F41.9 Anxiety disorder, unspecified; F17.210 Nicotine dependence, cigarettes, uncomplicated; G47.33 Obstructive sleep apnea (adult) (pediatric); Z79.82 Long term (current) use of aspirin; Z79.01 Long term (current) use of anticoagulants; Z79.899 Other long term (current) drug therapy
CPT/HCPCS: J0702; J1885; J2001; J2250; J2704; J3010; S0020

== ENCOUNTER 2017-10-18 08:40 | Outpatient (CLI) | payer BC, MEDICARE ==
[2017-10-18] MEDS ORDERED: Iopamidol 370 76% 100 ML VIAL ONE (12:58)
== END 2017-10-18 08:41 | disposition home or self-care (01) ==
LOC: BICCT 08:40
PROVIDERS: ATTEND Family Medicine
DX: N20.0 Calculus of kidney (principal); R10.9 Unspecified abdominal pain
CPT/HCPCS: 74177

== ENCOUNTER 2018-11-01 17:28 | Outpatient (CLI) | payer BC, MEDICARE ==
[2018-11-01 18:56] LABS: #Eosinphils 0.5 thou/uL (0.0-0.7); #Lymphocytes 2.2 thou/uL (1.20-3.40); #Monocytes 0.6 thou/uL (0.11-0.59); #Neutrophils 1.7 thou/uL (1.40-6.50); %Basophils 0.9 % (0.0-1.0); %Eosinophils 9.3 % (0.0-10.0); %Lymphocytes 44.8 % (21.0-51.0); %Monocytes 11.4 % (0.0-10.0); %Neutrophils 33.6 % (42.0-75.0); Hemoglobin 14.4 g/dL (14.0-18.0); Mean Corpuscular HGB CONC 34.5 g/dL (32.0-36.0); Mean Corpuscular Volume 95.7 fL (78.0-98.0); Mean Platelet Volume 7.9 fL (7.4-10.4); Platelet Count 257 thou/uL (130-400); RBC Distribution Width 12.2 % (11.5-14.5); Red Blood Cell (RBC) Count 4.35 mill/uL (4.70-6.10); White Blood Cell (WBC) Count 4.9 thou/uL (4.8-10.8)
[2018-11-01 19:04] LABS: PTT 30.8 SEC (22.9-36.1); Prothrombin Time 13.1 SEC (12.0-14.7)
[2018-11-01 19:18] LABS: ALT (SGPT) 30 U/L (8-55); AST (SGOT) 27 U/L (5-34); Albumin 4.8 g/dL (3.4-4.8); Alkaline Phosphatase 72 U/L (40-150); Anion Gap 16 mmol/L (10-20); BUN (Urea Nitrogen) 15 mg/dL (8.4-25.7); Bilirubin, Direct 0.4 mg/dL (0.1-0.3); Bilirubin, Total 1.2 mg/dL (0.2-1.2); Calc. Creatinine Clearance 0 mL/min (70-130); Calcium 10.1 mg/dL (7.8-10.44); Carbon Dioxide 23 mmol/L (23-31); Cardiac Risk 4.5 (Less than 4.5); Chloride 105 mmol/L (98-107); Cholesterol 134 mg/dl (< 200 Desired); Estimated GFR-MDRD Greater than 90; Globulin 2.6 g/dL (2.4-3.5); Glucose 98 mg/dL (83-110); HDL Cholesterol 30 mg/dL (>60 Neg Risk); LDL Cholesterol, Calculated 69 mg/dL; Potassium 4.4 mmol/L (3.5-5.1); Protein, Total 7.4 g/dL (5.8-8.1); Sodium 140 mmol/L (136-145); Triglycerides 174 mg/dL (Less than 150)
== END 2018-11-01 17:29 | disposition home or self-care (01) ==
LOC: LABBT 17:28
PROVIDERS: ATTEND Internal Medicine Cardiovascular Disease
DX: Z01.818 Encounter for other preprocedural examination (principal); R06.02 Shortness of breath
CPT/HCPCS: 80053; 80061; 80076; 85025; 85610; 85730; 93005; 93010

== ENCOUNTER 2018-11-04 05:57 | Day surgery (SDC) | payer BC, MEDICARE ==
[2018-11-01 17:41] VITALS: BMI 25.4
[2018-11-04] MEDS ORDERED: Diazepam 5 MG TAB ONE (06:14)
[2018-11-04] MEDS ORDERED: Midazolam HCl 2 mg/2 ml Vial ONE (08:05)
[2018-11-04] MEDS ORDERED: Heparin 10,000 UNITS/1 ML VIAL ONE (09:47)
[2018-11-04] MEDS ORDERED: Protamine Sulfate 50 MG/5 ML VIAL ONE (10:08)
[2018-11-04] MEDS ORDERED: Iopamidol 370 76% 100 ML VIAL ONE (10:32)
--- NOTE | 2018-11-04 14:13 | CON ---
DATE OF CONSULTATION: 11/04/2018 HISTORY OF PRESENT ILLNESS: This is a 73-year-old with several month history of dyspnea and chest pressure with exertion. He has multiple cardiovascular risk factors including hypertension, dyslipidemia, and diabetes mellitus. He is not a smoker. He was diagnosed with atrial fibrillation in July of 2017, ultimately cardioverted. He remained in sinus rhythm until April when he was hospitalized in [place] with recurrent atrial fibrillation and converted with medication. PAST MEDICAL HISTORY: Noted, includes dyslipidemia, hypertension, and diabetes mellitus. PAST SURGICAL HISTORY: Stent to his coronary artery in 2005. He has had previous knee surgery and tonsillectomy. No other major surgeries. SOCIAL HISTORY: He is . Works as a construction plant operator PHYSICAL EXAMINATION: VITAL SIGNS: His weight is recorded at 199 pounds with a height of 6 feet 2 inches. NECK: No carotid bruits. LUNGS: Clear to auscultation. CARDIAC: His rhythm is regular with a heart rate of about 70. ABDOMEN: Soft and nontender. EXTREMITIES: He has palpable pedal pulses bilaterally with no edema. DIAGNOSTIC DATA: Cardiac catheterization reveals about an 80% mid circ lesion prior to 2 distal obtuse marginal branches. He also has a heavily calcified LAD diagonal system with about a 60% stenosis involving the takeoff of the LAD diagonal bifurcation. Left ventricular function is reported as normal. MEDICATIONS: Include, 1. Zolpidem 10 mg at bedtime as needed. 2. Dexilant 60 mg daily. 3. Isosorbide 30 mg daily. 4. Aspirin 81 a day. 5. Eliquis 5 mg a day, which he was told to stay off of until surgery. 6. Toprol-XL 50, one every morning and half every evening. 7. Vascepa 2 capsules daily. 8. Atorvastatin 40 a day. 9. Aleve as needed. 10. Amitiza 8 mcg twice a day. 11. Aspirin 81 mg. PLAN: Plan at this time is for coronary bypass grafting in the next week or two , and informed consent has been obtained. Job ID: [id number] [facility]
[2018-11-04] MEDS ORDERED: Acetaminophen/Codeine 30-300mg Tablet ONE (14:34)
== END 2018-11-04 15:38 | disposition home or self-care (01) ==
LOC: CCL 05:57
PROVIDERS: ATTEND Internal Medicine Cardiovascular Disease
PROC: B2001ZZ Plain Radiography of Single Coronary Artery using Low Osmolar Contrast (ICD-10-PCS; principal; 2018-11-04)
PROC: 4A023N7 Measurement of Cardiac Sampling and Pressure, Left Heart, Percutaneous Approach (ICD-10-PCS; principal; 2018-11-04)
DX: I25.10 Atherosclerotic heart disease of native coronary artery without angina pectoris (principal); I25.84 Coronary atherosclerosis due to calcified coronary lesion; I10 Essential (primary) hypertension; E11.65 Type 2 diabetes mellitus with hyperglycemia; E78.5 Hyperlipidemia, unspecified; E78.00 Pure hypercholesterolemia, unspecified; I48.0 Paroxysmal atrial fibrillation; J18.9 Pneumonia, unspecified organism; E66.9 Obesity, unspecified; Z68.25 Body mass index [BMI] 25.0-25.9, adult; Z79.01 Long term (current) use of anticoagulants; Z79.82 Long term (current) use of aspirin; Z79.899 Other long term (current) drug therapy; Z95.5 Presence of coronary angioplasty implant and graft; Z87.891 Personal history of nicotine dependence
CPT/HCPCS: 36415; 85347; 86850; 86900; 86901; 93458; 93571; 93798; 99152; 99153; C1769; C1887; J0153; J1644; J2250; J2720; Q9967

== ENCOUNTER 2018-11-09 05:10 | Outpatient (CLI) | payer BC, MEDICARE | END 2018-11-09 05:11 | disposition home or self-care (01) | LOC: LABBT 05:10 | PROVIDERS: ATTEND Thoracic Surgery (Cardiothoracic Vascular Surgery) | DX: Z01.812 Encounter for preprocedural laboratory examination (principal); I25.10 Atherosclerotic heart disease of native coronary artery without angina pectoris | CPT/HCPCS: 86850; 86900; 86901 ==

== ENCOUNTER 2018-11-09 16:30 | Inpatient (IN) | payer BC, MEDICARE ==
[2018-11-10] MEDS ORDERED: Norepinephrine 4 MG/4 ML VIAL ONE (06:22)
[2018-11-10] MEDS ORDERED: Nitroglycerin 50 MG/250 ML BOT 250 ML ONE (06:22)
[2018-11-10] MEDS ORDERED: Propofol 500 MG/50 ML VIAL ONE (06:23)
[2018-11-10] MEDS ORDERED: Fentanyl 250 MCG/5 ML VIAL ONE (06:23)
[2018-11-10] MEDS ORDERED: Albumin 5% 500 ML ONE (06:32)
[2018-11-10] MEDS ORDERED: Heparin 10,000 UNITS/1 ML VIAL 30,000 UNITS in Sodium Chloride 0.9% 1,000 ML FS SCH (07:00)
[2018-11-10] MEDS ORDERED: Midazolam HCl 2 mg/2 ml Vial ONE (07:22)
[2018-11-10] MEDS ORDERED: Vecuronium 10 MG VIAL ONE (09:27)
[2018-11-10] MEDS ORDERED: Potassium Chloride 60 MEQ/30 ML VIAL ONE (09:27)
[2018-11-10] MEDS ORDERED: Dexamethasone 20 MG/5 ML VIAL ONE (09:27)
[2018-11-10] MEDS ORDERED: Cardioplegic Soln 1,000 ML BAG ONE (09:27)
[2018-11-10] MEDS ORDERED: Calcium Chloride 1 GM/10 ML Abboject SYRINGE ONE (09:27)
[2018-11-10] MEDS ORDERED: Mannitol 12.5 GM/50 ML ONE (09:27)
[2018-11-10] MEDS ORDERED: PROPOFOL 200 MG/20 ML VIAL ONE (09:27)
[2018-11-10] MEDS ORDERED: Lidocaine 2% PF 100 mg/5 ml Syringe ONE (09:27)
[2018-11-10] MEDS ORDERED: Heparin 5,000 UNITS/ML VIAL ONE (09:27)
[2018-11-10] MEDS ORDERED: Ondansetron PF 4 MG/2 ML Vial ONE (09:27)
[2018-11-10] MEDS ORDERED: Magnesium 5 GM/10 ML VIAL ONE (09:27)
[2018-11-10] MEDS ORDERED: Protamine Sulfate 250 MG/25 ML VIAL ONE (09:27)
[2018-11-10] MEDS ORDERED: Papaverine 60 MG/2 ML VIAL ONE (09:27)
[2018-11-10] MEDS ORDERED: Aminocaproic Acid 5 GM/20 ML VIAL ONE (09:27)
[2018-11-10] MEDS ORDERED: Heparin 30,000 units/30 ml VIAL ONE (09:27)
[2018-11-10] MEDS ORDERED: Succinylcholine Chloride 20 MG/ML 10 ml SYRINGE FS ONE (09:27)
[2018-11-10] MEDS ORDERED: Rocuronium Bromide 10 MG/ML (10ML VIAL) ONE (09:27)
[2018-11-10] MEDS ORDERED: Sodium Bicarb 50 MEQ/50 ML VIAL ONE (09:27)
[2018-11-10] MEDS ORDERED: Thrombin 5000 UNITS/5 ML VIAL ONE (09:27)
[2018-11-10] MEDS ORDERED: Insulin Regular 300 UNITS/3 ML VIAL ONE (10:05)
[2018-11-10] MEDS ORDERED: Ondansetron PF 4 MG/2 ML Vial IVP PRN (11:12)
[2018-11-10] MEDS ORDERED: Post-Op Insulin Drip Protocol IVPB ONE (11:12)
[2018-11-10] MEDS ORDERED: DOPamine 400 MG/D5W 250 ML 250 ML IVPB PRN (11:12)
[2018-11-10] MEDS ORDERED: Morphine 4 MG/ML VIAL SLOW IVP PRN (11:12)
[2018-11-10] MEDS ORDERED: Hetastarch 6% 500 ML 500 ML IVPB PRN (11:12)
[2018-11-10] MEDS ORDERED: Nitroglycerin 50 MG/250 ML BOT 250 ML IVPB PRN (11:12)
[2018-11-10] MEDS ORDERED: HYDROcodone/Acetaminophen 5/325 mg Tablet PO PRN (11:12)
[2018-11-10] MEDS ORDERED: Guaifenesin DM 100-10/5 ML UDCUP PO PRN (11:12)
[2018-11-10] MEDS ORDERED: Mag-Al 1200 mg/1200 mg/30 ML UDCUP PO PRN (11:12)
[2018-11-10] MEDS ORDERED: Fentanyl 100 MCG/2 ML VIAL SLOW IVP PRN (11:12)
[2018-11-10] MEDS ORDERED: Bisacodyl 10 MG SUPP PR PRN (11:12)
[2018-11-10] MEDS ORDERED: Potassium Chloride 20 MEQ/100 ML PREMIX BAG IVPB PRN (11:12)
[2018-11-10] MEDS ORDERED: niCARdipine HCl 25 MG in Sodium Chloride 0.9% 250 ML 240 ML IVPB PRN (11:12)
[2018-11-10] MEDS ORDERED: Promethazine HCl 25 MG/ML VIAL IM PRN (11:12)
[2018-11-10] MEDS ORDERED: Acetaminophen 325 MG TAB PO PRN (11:12)
[2018-11-10] MEDS ORDERED: Norepinephrine 8 MG/0.9% NS 250 ML IVPB PRN (11:12)
[2018-11-10] MEDS ORDERED: hydrALAZINE 20 MG/ML VIAL SLOW IVP PRN (11:12)
[2018-11-10] MEDS ORDERED: Bisacodyl 5 MG TAB PO PRN (11:12)
[2018-11-10] MEDS ORDERED: Prevnar 13-Val Conj/PF 0.5 ML SYRINGE IM ONE (11:15)
[2018-11-10] MEDS ORDERED: Insulin Regular 300 UNITS/3 ML VIAL SC PRN (11:27)
[2018-11-10] MEDS ORDERED: HUMULIN R 100 UNITS in Sodium Chloride 0.9% 100 ML IVPB SCH (11:27)
[2018-11-10] MEDS ORDERED: Dextrose 50% Abboject 50 ML SYRINGE SLOW IVP PRN (11:27)
[2018-11-10] MEDS ORDERED: Dextrose 5% in Water 1,000 ML IV PRN (11:27)
[2018-11-10] MEDS ORDERED: Magnesium 2 GM/50 ML 2 GM in Premix Bag 1 BAG IVPB SCH (11:45)
[2018-11-10 11:48] LABS: Actual Bicarbonate (HCO3a) 22.1 mEq/L (22-28); Base Excess (BEa) -4.3 mEq/L (-2.0 to +3.0); CO2 Tension 46.2 mmHg (35.0-45.0); Calcium, Ionized 1.18 mmol/L (1.12-1.30); Carboxyhemoglobin (COHb) 0.7 gm% (0.0-3.0); Hemoglobin (Hb) 11.7 g/dL (14.0-18.0); O2 Tension (PaO2) 86.7 mmHg (> 70.0); Potassium - ABG Lab 4.25 mmol/L (3.70-5.30); Puncture Site LINE
[2018-11-10 11:51] LABS: #Eosinphils 0.2 thou/uL (0.0-0.7); #Lymphocytes 1.8 thou/uL (1.20-3.40); #Monocytes 0.6 thou/uL (0.11-0.59); #Neutrophils 9.9 thou/uL (1.40-6.50); %Basophils 0.1 % (0.0-1.0); %Eosinophils 1.6 % (0.0-10.0); %Lymphocytes 14.5 % (21.0-51.0); %Monocytes 4.5 % (0.0-10.0); %Neutrophils 79.4 % (42.0-75.0); Hemoglobin 11.4 g/dL (14.0-18.0); Mean Corpuscular HGB CONC 35.1 g/dL (32.0-36.0); Mean Corpuscular Hemoglobin 33.2 pg (27.0-31.0); Mean Corpuscular Volume 94.5 fL (78.0-98.0); Mean Platelet Volume 7.4 fL (7.4-10.4); Platelet Count 232 thou/uL (130-400); RBC Distribution Width 11.9 % (11.5-14.5); Red Blood Cell (RBC) Count 3.43 mill/uL (4.70-6.10); White Blood Cell (WBC) Count 12.5 thou/uL (4.8-10.8)
[2018-11-10 11:56] LABS: INR-International Normal Ratio 1.2; PTT 29.1 SEC (22.9-36.1); Prothrombin Time 15.4 SEC (12.0-14.7)
[2018-11-10 12:19] LABS: Anion Gap 14 mmol/L (10-20); BUN (Urea Nitrogen) 13 mg/dL (8.4-25.7); Calc. Creatinine Clearance 115 mL/min (70-130); Calcium 8.3 mg/dL (7.8-10.44); Carbon Dioxide 22 mmol/L (23-31); Chloride 104 mmol/L (98-107); Estimated GFR-MDRD Greater than 90; Glucose 152 mg/dL (83-110); Potassium 4.2 mmol/L (3.5-5.1); Sodium 136 mmol/L (136-145)
[2018-11-10] MEDS: Lactated Ringer's 1,000 ML IV SCH ×2 (12:24→21:01)
[2018-11-10] MEDS: Ketorolac Tromethamine 30 MG/ML VIAL IVP SCH ×3 (12:26→23:58)
[2018-11-10] MEDS: CEFAZOLIN 2 GM in Premix Bag 1 BAG IVPB SCH ×2 (12:59→21:59)
--- NOTE | 2018-11-10 13:40 | RAD ---
SINGLE VIEW CHEST: Date: 11/10/18 COMPARISON: 07/15/17. HISTORY: Status post open heart surgery. FINDINGS: Single view of the chest shows an enlarged cardiomediastinal silhouette. The patient is status post C ABG. There is an endotracheal tube with its tip at the lower border of the clavicles. A right subclav bela central venous catheter is seen with its tip at the atriocaval junction. Bilateral chest tubes an d a mediastinal drain are seen. There may be atelectasis in the left lung base. No pneumothorax is se en. IMPRESSION: Appropriate position of lines and tubes status post sternotomy. POS: TPC
[2018-11-10] MEDS ORDERED: Norepinephrine 8 MG in Sodium Chloride 0.9% 250 ML 250 ML IVPB SCH (14:15)
[2018-11-10 16:57] LABS: Actual Bicarbonate (HCO3a) 23.4 mEq/L (22-28); Base Excess (BEa) -2.3 mEq/L (-2.0 to +3.0); CO2 Tension 43.5 mmHg (35.0-45.0); Calcium, Ionized 1.12 mmol/L (1.12-1.30); Carboxyhemoglobin (COHb) 0.9 gm% (0.0-3.0); Hemoglobin (Hb) 12.2 g/dL (14.0-18.0); O2 Tension (PaO2) 81.8 mmHg (> 70.0); Potassium - ABG Lab 4.19 mmol/L (3.70-5.30); pH, Arterial 7.35 (7.35-7.45)
[2018-11-10 16:59] LABS: Hemoglobin 11.7 g/dL (14.0-18.0)
[2018-11-10 16:59] LABS: ALV-art Gradient 149.025 (0-20); Puncture Site LINE
[2018-11-10 17:14] LABS: Potassium 4.2 mmol/L (3.5-5.1)
[2018-11-10] MEDS: Fentanyl 100 MCG/2 ML VIAL SLOW IVP PRN ×4 (17:16→23:59)
[2018-11-10] MEDS: HYDROcodone/Acetaminophen 5/325 mg Tablet PO PRN ×2 (18:00→22:56)
--- NOTE | 2018-11-10 20:14 | EKG ---
Test Reason : S/P CABG Blood Pressure : / mmHG Vent. Rate : 077 BPM Atrial Rate : 077 BPM P-R Int : 164 ms QRS Dur : 088 ms QT Int : 424 ms P-R-T Axes : 040 -04 083 degrees QTc Int : 479 ms Normal sinus rhythm Inferior infarct , age undetermined T wave abnormality, consider lateral ischemia Abnormal ECG When compared with ECG of 01-NOV-2018 17:40, Inferior infarct is now Present T wave inversion now evident in Lateral leads Confirmed by BHAVYA ALVAREZ, DR. Ontiveros ([id number]) on 11/10/2018 8:14:12 PM Referred By: SOLEDAD Confirmed By:DR. Rama LATIF MD
[2018-11-10] MEDS: Famotidine/PF 20 mg/2ml Vial SLOW IVP SCH (21:03)
[2018-11-11] MEDS: Fentanyl 100 MCG/2 ML VIAL SLOW IVP PRN ×2 (01:59→05:29)
[2018-11-11] MEDS: HYDROcodone/Acetaminophen 5/325 mg Tablet PO PRN ×4 (03:03→21:25)
[2018-11-11 04:04] LABS: #Basophils 0.1 thou/uL (0.0-0.2); #Lymphocytes 0.8 thou/uL (1.20-3.40); #Neutrophils 8.9 thou/uL (1.40-6.50); %Basophils 0.8 % (0.0-1.0); %Eosinophils 0.1 % (0.0-10.0); %Lymphocytes 7.3 % (21.0-51.0); %Monocytes 8.9 % (0.0-10.0); %Neutrophils 82.8 % (42.0-75.0); Hemoglobin 11.6 g/dL (14.0-18.0); Mean Corpuscular HGB CONC 34.9 g/dL (32.0-36.0); Mean Corpuscular Hemoglobin 33.2 pg (27.0-31.0); Mean Corpuscular Volume 95.3 fL (78.0-98.0); Mean Platelet Volume 7.4 fL (7.4-10.4); Platelet Count 186 thou/uL (130-400); RBC Distribution Width 11.9 % (11.5-14.5); White Blood Cell (WBC) Count 10.7 thou/uL (4.8-10.8)
[2018-11-11 04:21] LABS: Anion Gap 9 mmol/L (10-20); BUN (Urea Nitrogen) 10 mg/dL (8.4-25.7); Calc. Creatinine Clearance 141 mL/min (70-130); Calcium 8.4 mg/dL (7.8-10.44); Carbon Dioxide 29 mmol/L (23-31); Chloride 101 mmol/L (98-107); Estimated GFR-MDRD Greater than 90; Glucose 130 mg/dL (83-110); Potassium 4.6 mmol/L (3.5-5.1); Sodium 134 mmol/L (136-145)
[2018-11-11] MEDS: CEFAZOLIN 2 GM in Premix Bag 1 BAG IVPB SCH (05:30)
[2018-11-11] MEDS: Ketorolac Tromethamine 30 MG/ML VIAL IVP SCH ×4 (05:30→23:58)
--- NOTE | 2018-11-11 07:55 | RAD ---
XR Chest 1 View Portable History: [Open-heart surgery] Comparison: Radiograph prior day Findings: The enteric tube is been removed. Mediastinal drains are similar. Moderate pleural effusions. No pneumothorax. Heart size is enlarged. Volume loss both lower lobes. Moderate effusions. Impression: Removal of the enteric tube otherwise similar examination.
[2018-11-11] MEDS: Famotidine/PF 20 mg/2ml Vial SLOW IVP SCH (08:13)
[2018-11-11] MEDS: Metoprolol Tartrate 25 MG TAB PO SCH ×2 (08:14→21:25)
[2018-11-11] MEDS: Aspirin 325 MG TAB PO SCH (08:14)
[2018-11-11] MEDS: Rosuvastatin 20 MG TAB PO SCH (21:25)
[2018-11-11] MEDS: Famotidine 20 MG TAB PO SCH (21:26)
[2018-11-12 03:56] LABS: #Eosinphils 0.2 thou/uL (0.0-0.7); #Lymphocytes 1.1 thou/uL (1.20-3.40); #Monocytes 0.8 thou/uL (0.11-0.59); %Basophils 0.1 % (0.0-1.0); %Eosinophils 2.3 % (0.0-10.0); %Lymphocytes 13.6 % (21.0-51.0); %Monocytes 9.7 % (0.0-10.0); %Neutrophils 74.2 % (42.0-75.0); Hemoglobin 10.5 g/dL (14.0-18.0); Mean Corpuscular HGB CONC 34.2 g/dL (32.0-36.0); Mean Corpuscular Hemoglobin 32.9 pg (27.0-31.0); Mean Corpuscular Volume 96.1 fL (78.0-98.0); Mean Platelet Volume 7.3 fL (7.4-10.4); Platelet Count 150 thou/uL (130-400); White Blood Cell (WBC) Count 8.1 thou/uL (4.8-10.8)
[2018-11-12 04:20] LABS: Anion Gap 9 mmol/L (10-20); BUN (Urea Nitrogen) 12 mg/dL (8.4-25.7); Calc. Creatinine Clearance 136 mL/min (70-130); Calcium 8.4 mg/dL (7.8-10.44); Carbon Dioxide 30 mmol/L (23-31); Chloride 96 mmol/L (98-107); Estimated GFR-MDRD Greater than 90; Glucose 128 mg/dL (83-110); Potassium 4.5 mmol/L (3.5-5.1); Sodium 130 mmol/L (136-145)
[2018-11-12] MEDS: Ketorolac Tromethamine 30 MG/ML VIAL IVP SCH (05:51)
[2018-11-12 06:17] VITALS: BMI 27.4
[2018-11-12] MEDS: HYDROcodone/Acetaminophen 5/325 mg Tablet PO PRN ×2 (07:25→14:12)
--- NOTE | 2018-11-12 07:59 | RAD ---
XR Chest 1 View Portable History: [Open-heart surgery] Comparison: Radiograph prior day Findings: Mediastinal drains are similar. Right subclavian central venous catheter tip is similar. At electatic changes both lung bases. No pneumothorax. Impression: Expected postoperative findings. No complication.
[2018-11-12] MEDS: Famotidine 20 MG TAB PO SCH ×2 (09:23→20:26)
[2018-11-12] MEDS: Aspirin 325 MG TAB PO SCH (09:23)
[2018-11-12] MEDS: Metoprolol Tartrate 25 MG TAB PO SCH ×2 (09:23→20:26)
[2018-11-12] MEDS ORDERED: Bisacodyl 10 MG SUPP PR PRN (11:29)
[2018-11-12] MEDS ORDERED: Guaifenesin DM 100-10/5 ML UDCUP PO PRN (11:29)
[2018-11-12] MEDS ORDERED: Bisacodyl 5 MG TAB PO PRN (11:29)
[2018-11-12] MEDS ORDERED: Ondansetron PF 4 MG/2 ML Vial IVP PRN (11:29)
[2018-11-12] MEDS ORDERED: Milk Of Magnesia 30 ML UDCUP PO PRN (11:29)
[2018-11-12] MEDS ORDERED: Mineral Oil ENEMA PR PRN (11:29)
[2018-11-12] MEDS ORDERED: Fentanyl 100 MCG/2 ML VIAL SLOW IVP PRN ×2 (11:29)
[2018-11-12] MEDS ORDERED: Zolpidem Tartrate 5 MG TAB PO PRN (11:29)
[2018-11-12] MEDS ORDERED: Acetaminophen 325 MG TAB PO PRN (11:29)
[2018-11-12] MEDS ORDERED: HYDROcodone/Acetaminophen 5/325 mg Tablet PO PRN (11:29)
[2018-11-12] MEDS ORDERED: Mag-Al 1200 mg/1200 mg/30 ML UDCUP PO PRN (11:29)
[2018-11-12] MEDS ORDERED: Nitroglycerin 0.4 MG TAB (25 Tab Bottle) SL PRN (11:29)
[2018-11-12] MEDS ORDERED: Furosemide 40 MG TAB PO SCH (11:45)
[2018-11-12] MEDS ORDERED: Aspirin 325 mg Enteric Coated Tablet PO SCH (11:45)
[2018-11-12] MEDS ORDERED: Polyethylene Glycol 3350 17 GM Packet PO SCH (11:45)
[2018-11-12] MEDS ORDERED: Famotidine 20 MG TAB PO SCH (11:45)
[2018-11-12] MEDS ORDERED: Amiodarone 200 MG TAB PO SCH ×2 (11:45→21:00)
[2018-11-12] MEDS ORDERED: Metoprolol Tartrate 25 MG TAB PO SCH (11:45)
[2018-11-12] MEDS ORDERED: Amiodarone 150 MG in Dextrose 5% in Water 100 ML IVPB SCH (12:30)
[2018-11-12] MEDS: Amiodarone 450 MG in Dextrose 5% in Water 250 ML IVPB SCH (13:02)
[2018-11-12] MEDS: Amiodarone 200 MG TAB PO SCH (20:26)
[2018-11-12] MEDS: Rosuvastatin 20 MG TAB PO SCH (20:26)
--- NOTE | 2018-11-12 21:15 | CON ---
DATE OF CONSULTATION: 11/12/2018 HISTORY OF PRESENT ILLNESS: Mr. Lazo is a 73-year-old male. He underwent coronary artery bypass grafting. He has had some postoperative atrial fibrillation. He tells me he had an atrial appendage ligation. He has had atrial fibrillation in the past. He said he was electively cardioverted out of atrial fibrillation in the past. PAST MEDICAL HISTORY: Remarkable for: 1. Hypertension. 2. Lipid disorder. 3. Diabetes. 4. History of coronary stenting in 2005. 5. History of knee surgery. 6. History of tonsillectomy. 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 He is a former smoker, not a daily drinker. ALLERGIES: HE REPORTS NO DRUG ALLERGIES. FAMILY HISTORY: Negative for lung disease in early age. REVIEW OF SYSTEMS: Ten point review of systems completed, negative except for mild chest discomfort. He said he did not even know he had a graft taken from his left leg until he was told that he has absolutely no leg pain surprisingly. PHYSICAL EXAMINATION: VITAL SIGNS: Heart rate 82, respiratory rate 22, oximetry is 92% on 2 L, blood pressure is 134/77. HEENT: Pupils are equal. Sclerae are anicteric. NECK: Supple. No lymphadenopathy. LUNGS: Clear. HEART: Regular with a rate of 115 when I saw him. ABDOMEN: Soft and nontender. EXTREMITIES: Without clubbing, cyanosis, or edema. EXTREMITIES: Feet are warm. NEURO: Nonfocal. LABORATORY DATA: White count 8.1, hemoglobin 10.5, and platelets 150,000. Sodium 130, potassium 4.5, chloride 96, bicarb 30, BUN 12, creatinine 0.66, glucose 128. PH 2 days ago 7.35, CO2 43, PO2 81. IMAGING DATA: Chest x-ray shows mediastinal drain, subclavian central line on the right. Mild atelectasis at the lung bases. IMPRESSION: Status post coronary artery bypass grafting, clinically doing well with the exception of atrial fibrillation. I have explained to family this is a more of a nuisance problem and a life-threatening problem. He is on amiodarone. Hopefully, he will convert with the amiodarone and will not require cardioversion. TIME SPENT: This is a 70-minute consult, with greater than 50% of the time spent on the unit coordinating care. In my opinion, he is stable to move out of Critical Care Unit. Job ID: [id number] [facility]
[2018-11-13] MEDS: Potassium Chloride 10 MEQ TAB PO SCH (08:20)
[2018-11-13] MEDS: Amiodarone 200 MG TAB PO SCH ×2 (08:21→21:05)
[2018-11-13] MEDS: Metoprolol Tartrate 25 MG TAB PO SCH ×2 (08:21→21:06)
[2018-11-13] MEDS: Aspirin 325 mg Enteric Coated Tablet PO SCH (08:21)
[2018-11-13] MEDS: Furosemide 40 MG TAB PO SCH (08:21)
[2018-11-13] MEDS: Famotidine 20 MG TAB PO SCH ×2 (08:21→21:06)
[2018-11-13] MEDS: Polyethylene Glycol 3350 17 GM Packet PO SCH (08:23)
[2018-11-13] MEDS ORDERED: Melatonin 3 MG TAB PO PRN (09:32)
[2018-11-13] MEDS: HYDROcodone/Acetaminophen 5/325 mg Tablet PO PRN (10:04)
[2018-11-13] MEDS: Amiodarone 450 MG in Dextrose 5% in Water 250 ML IVPB SCH (10:24)
[2018-11-13] MEDS: Rosuvastatin 20 MG TAB PO SCH (21:06)
[2018-11-14 03:24] VITALS: TEMP 98.8
[2018-11-14 07:02] VITALS: BP 131/63
[2018-11-14] MEDS: Furosemide 40 MG TAB PO SCH (08:18)
[2018-11-14] MEDS: Potassium Chloride 10 MEQ TAB PO SCH (08:18)
[2018-11-14] MEDS: Aspirin 325 mg Enteric Coated Tablet PO SCH (08:18)
[2018-11-14] MEDS: Famotidine 20 MG TAB PO SCH (08:18)
[2018-11-14] MEDS: Amiodarone 200 MG TAB PO SCH (08:18)
[2018-11-14] MEDS: Metoprolol Tartrate 25 MG TAB PO SCH (08:19)
[2018-11-14] MEDS: Polyethylene Glycol 3350 17 GM Packet PO SCH (08:20)
[2018-11-14] MEDS: HYDROcodone/Acetaminophen 5/325 mg Tablet PO PRN (08:24)
--- NOTE | 2018-11-14 16:21 | DIS ---
DATE OF ADMISSION: 11/10/2018 DATE OF DISCHARGE: 11/14/2018 HOSPITAL COURSE: This is a 73-year-old gentleman, who had undergone cardiac catheterization the week prior and underwent coronary artery bypass grafting x3 to the LAD, diagonal, and OM with left atrial appendage ligation. Postoperatively, he did well with some transient atrial fibrillation on his first postoperative day on 11/11. Subsequently, he had no further AFib and his amiodarone was transitioned to p.o. He will be discharged home with a prescription for amiodarone, tapering dose tramadol for pain. I have resumed his home medications except for his Eliquis, which I have held for the time being. Discharge and followup instructions were given. Job ID: [id number]
[2018-11-15 09:58] LABS: Actual Bicarbonate (HCO3a) 22.2 mEq/L (22-28); Analyzer IN Cardio OR; Base Excess (BEa) -2.1 mEq/L (-2.0 to +3.0); CO2 Tension 36.4 mmHg (35.0-45.0); Calcium, Ionized 1.09 mmol/L (1.12-1.30); Carboxyhemoglobin (COHb) 0.3 gm% (0.0-3.0); Hemoglobin (Hb) 11.8 g/dL (14.0-18.0); O2 Tension (PaO2) 354.3 mmHg (> 70.0)
[2018-11-15 09:58] LABS: Actual Bicarbonate (HCO3a) 24.2 mEq/L (22-28); Analyzer IN Cardio OR; Base Excess (BEa) -1.8 mEq/L (-2.0 to +3.0); CO2 Tension 46.6 mmHg (35.0-45.0); Calcium, Ionized 1.03 mmol/L (1.12-1.30); Carboxyhemoglobin (COHb) 0.7 gm% (0.0-3.0); Hemoglobin (Hb) 11.9 g/dL (14.0-18.0); O2 Tension (PaO2) 70.2 mmHg (> 70.0); Potassium - ABG Lab 4.21 mmol/L (3.70-5.30); pH, Arterial 7.33 (7.35-7.45)
[2018-11-15 09:59] LABS: Actual Bicarbonate (HCO3a) 24.4 mEq/L (22-28); Analyzer IN Cardio OR; Base Excess (BEa) -1.2 mEq/L (-2.0 to +3.0); CO2 Tension 44.3 mmHg (35.0-45.0); Calcium, Ionized 1.02 mmol/L (1.12-1.30); Carboxyhemoglobin (COHb) 0.3 gm% (0.0-3.0); Hemoglobin (Hb) 10.2 g/dL (14.0-18.0); Potassium - ABG Lab 5.53 mmol/L (3.70-5.30); pH, Arterial 7.36 (7.35-7.45)
[2018-11-15 09:59] LABS: Actual Bicarbonate (HCO3a) 24.8 mEq/L (22-28); Analyzer IN Cardio OR; Base Excess (BEa) -1.7 mEq/L (-2.0 to +3.0); CO2 Tension 50.3 mmHg (35.0-45.0); Calcium, Ionized 1.04 mmol/L (1.12-1.30); Carboxyhemoglobin (COHb) 0.3 gm% (0.0-3.0); Hemoglobin (Hb) 10.4 g/dL (14.0-18.0); O2 Tension (PaO2) 393.6 mmHg (> 70.0); Potassium - ABG Lab 5.33 mmol/L (3.70-5.30); pH, Arterial 7.31 (7.35-7.45)
[2018-11-15 09:59] LABS: Actual Bicarbonate (HCO3v) 26 mEq/L (22-28); Analyzer IN Cardio OR; Base Excess -0.9 mEq/L (-2.0 to +3.0); Calcium, Ionized 1.05 mmol/L (1.16-1.32); Chloride (ABG LAB) 101 mmol/L (98-106); Hemoglobin (Hb) 10.7 g/dL (12.6-17.4); Potassium - ABG Lab 5.08 mmol/L (3.70-5.30); Sodium 133.1 mmol/L (133-146)
[2018-11-15 10:00] LABS: Actual Bicarbonate (HCO3a) 21.5 mEq/L (22-28); Analyzer IN Cardio OR; Base Excess (BEa) -3.8 mEq/L (-2.0 to +3.0); CO2 Tension 39.9 mmHg (35.0-45.0); Calcium, Ionized 1.12 mmol/L (1.12-1.30); Carboxyhemoglobin (COHb) 0.2 gm% (0.0-3.0); Hemoglobin (Hb) 11.3 g/dL (14.0-18.0); O2 Tension (PaO2) 409.2 mmHg (> 70.0); Potassium - ABG Lab 4.32 mmol/L (3.70-5.30); pH, Arterial 7.35 (7.35-7.45)
[2018-11-15 10:22] LABS: Puncture Site ALINE
[2018-11-15 10:22] LABS: Puncture Site ALINE
[2018-11-15 10:24] LABS: O2 Tension (PaO2) 522.2 mmHg (> 70.0); Puncture Site ALINE
[2018-11-15 10:25] LABS: Puncture Site ALINE
[2018-11-15 10:25] LABS: Puncture Site ALINE
--- NOTE | 2018-11-15 10:25 | OP ---
DATE OF PROCEDURE: 11/10/2018 PREOPERATIVE DIAGNOSIS: Coronary artery disease. POSTOPERATIVE DIAGNOSIS: Coronary artery disease. PROCEDURE PERFORMED: Coronary artery bypass graft x3, left internal mammary artery to 2.5 mm left anterior descending, saphenous vein graft to 2 mm diagonal, 2.5 mm obtuse marginal and left atrial appendage ligation. SOLAR THERMAL TECHNICIAN: Saad Cazares MD TRANSFUSION: None. DESCRIPTION OF PROCEDURE: After adequate anesthesia had been obtained, the patient was prepped and draped. Dr. Cazares did an endovascular vein harvest while I performed a median sternotomy harvesting the left internal mammary artery. Following heparinization, the mammary was divided distally and passed posterior to the thymus gland. Aorta and right atrium were cannulated and cardiopulmonary bypass was instituted. Aorta was cross clamped and after a liter of cold blood cardioplegia, the left atrial appendage was oversewn with a double layer of 4-0 Prolene suture at its base. Following which, the 3 distal anastomosis were completed. Cross-clamp was removed and the partial occluding clamp placed and two proximal anastomoses were performed on the aortic root. Following this, the patient was weaned from cardiopulmonary bypass. Cannulas were removed and protamine given systemically. Two rings were used to mehdi the proximal anastomosis. Sternum was then reapproximated with #7 interrupted wire using vancomycin paste on the sternal edges, platelet rich blood and platelet poor plasma were used on the skin and subcutaneous tissues. Left and right pleural drains as well as mediastinal drains were placed. The patient was to be taken of ICU in guarded condition. Job ID: [id number]
--- NOTE | 2018-11-15 21:57 | EKG ---
Test Reason : Blood Pressure : / mmHG Vent. Rate : 121 BPM Atrial Rate : 104 BPM P-R Int : 000 ms QRS Dur : 086 ms QT Int : 332 ms P-R-T Axes : 000 033 075 degrees QTc Int : 471 ms Atrial fibrillation with rapid ventricular response Nonspecific ST and T wave abnormality , probably digitalis effect Inferior infarct Possible Acute Abnormal ECG When compared with ECG of 10-NOV-2018 12:03, Atrial fibrillation has replaced Sinus rhythm Vent. rate has increased BY 44 BPM Criteria for Inferior infarct are no longer Present ST elevation now present in Inferior leads T wave inversion no longer evident in Lateral leads Confirmed by BHAVYA ALVAREZ, DR. Ontiveros ([id number]) on 11/15/2018 9:56:27 PM Referred By: GAVINO Confirmed By:DR. Rama LATIF MD
== END 2018-11-14 11:59 | disposition home or self-care (01) | DRG 236 ==
LOC: SURG A 11-10 05:50 → CCU 11-10 11:23 → 2NO 11-12 19:45
PROVIDERS: ADMIT Thoracic Surgery (Cardiothoracic Vascular Surgery); ATTEND Thoracic Surgery (Cardiothoracic Vascular Surgery)
PROC: 02100Z9 Bypass Coronary Artery, One Artery from Left Internal Mammary, Open Approach (ICD-10-PCS; principal; 2018-11-10)
PROC: 021109W Bypass Coronary Artery, Two Arteries from Aorta with Autologous Venous Tissue, Open Approach (ICD-10-PCS; 2018-11-10)
PROC: 06BQ4ZZ Excision of Left Saphenous Vein, Percutaneous Endoscopic Approach (ICD-10-PCS; 2018-11-10)
PROC: 5A1221Z Performance of Cardiac Output, Continuous (ICD-10-PCS; 2018-11-10)
DX: I25.10 Atherosclerotic heart disease of native coronary artery without angina pectoris (principal); I97.89 Other postprocedural complications and disorders of the circulatory system, not elsewhere classified; I10 Essential (primary) hypertension; E78.5 Hyperlipidemia, unspecified; I48.91 Unspecified atrial fibrillation; E11.9 Type 2 diabetes mellitus without complications; Z95.5 Presence of coronary angioplasty implant and graft; Z90.89 Acquired absence of other organs; Z87.891 Personal history of nicotine dependence
CPT/HCPCS: 36416; 36430; 71045; 80048; 82805; 82947; 84132; 85014; 85018; 85025; 85610; 85730; 86850; 86900; 86901; 93005; 93010; 93798; 94002; 94150; 94640; J0282; J0690; J1100; J1642; J1644; J1815; J1885; J2001; J2150; J2250; J2405; J2440; J2704; J2720; J3010; J3370; J3475; J3480; J3490; J7050; J7070; J7620; P9045; S0017; S0028

== ENCOUNTER 2018-12-20 07:53 | Outpatient (CLI) | payer BC, MEDICARE ==
[2018-12-20 15:28] LABS: PTT 31.2 SEC (22.9-36.1); Prothrombin Time 13.5 SEC (12.0-14.7)
[2018-12-20 16:03] LABS: Anion Gap 13 mmol/L (10-20); BUN (Urea Nitrogen) 11 mg/dL (8.4-25.7); Calc. Creatinine Clearance 0 mL/min (70-130); Calcium 10.2 mg/dL (7.8-10.44); Carbon Dioxide 27 mmol/L (23-31); Chloride 100 mmol/L (98-107); Estimated GFR-MDRD Greater than 90; Glucose 96 mg/dL (83-110); Sodium 135 mmol/L (136-145)
== END 2018-12-20 07:54 | disposition home or self-care (01) ==
LOC: LABBT 07:53
PROVIDERS: ATTEND Internal Medicine Cardiovascular Disease
DX: Z01.818 Encounter for other preprocedural examination (principal); I48.91 Unspecified atrial fibrillation
CPT/HCPCS: 80048; 85610; 85730; 93005; 93010

== ENCOUNTER 2018-12-21 07:38 | Day surgery (SDC) | payer BC, MEDICARE ==
[2018-12-20 11:56] VITALS: BMI 25.7
[2018-12-21] MEDS ORDERED: PROPOFOL 0 ML ONE (08:28)
[2018-12-21] MEDS ORDERED: PROPOFOL 20 ML ONE (08:44)
[2018-12-21] MEDS ORDERED: PROPOFOL 200 MG/20 ML VIAL ONE (11:39)
--- NOTE | 2018-12-21 12:41 | OP ---
DATE OF PROCEDURE: 12/21/2018 PROCEDURE PERFORMED: Transesophageal echocardiogram. INDICATIONS FOR PROCEDURE: A 73-year-old gentleman with paroxysmal atrial fibrillation. DESCRIPTION OF PROCEDURE: The patient was taken to the PACU. The patient was sedated by Anesthesiology. A transesophageal probe was placed into the distal esophagus and stomach. Echocardiographic images were obtained. The transesophageal probe was removed. FINDINGS: 1. Normal left ventricular systolic function. 2. Normal mitral and aortic valves. 3. Hwlw-jt-bdgjwkca mitral regurgitation. 4. Mild tricuspid regurgitation. 5. The left atrial appendage was well ligated with no leak noted. 6. Trivial aortic regurgitation. 7. Atherosclerotic debris in the descending aorta. IMPRESSION: Left atrial appendage well ligated. Job ID: [id number]
== END 2018-12-21 10:20 | disposition home or self-care (01) ==
LOC: CCL 07:38
PROVIDERS: ATTEND Internal Medicine Cardiovascular Disease
PROC: B245ZZ4 Ultrasonography of Left Heart, Transesophageal (ICD-10-PCS; principal; 2018-12-21)
DX: I48.0 Paroxysmal atrial fibrillation (principal); I08.3 Combined rheumatic disorders of mitral, aortic and tricuspid valves; I10 Essential (primary) hypertension; E78.00 Pure hypercholesterolemia, unspecified; E78.2 Mixed hyperlipidemia; E66.9 Obesity, unspecified; Z68.25 Body mass index [BMI] 25.0-25.9, adult; Z79.82 Long term (current) use of aspirin; Z79.899 Other long term (current) drug therapy; Z95.5 Presence of coronary angioplasty implant and graft; Z95.2 Presence of prosthetic heart valve
CPT/HCPCS: 93312; J2704

== ENCOUNTER 2019-03-12 11:09 | Emergency (ER) | payer BC, MEDICARE ==
[2019-03-12] MEDS ORDERED: Ondansetron PF 4 MG/2 ML Vial ONE (11:21)
[2019-03-12] MEDS ORDERED: Morphine 4 MG/ML VIAL ONE ×2 (11:21→12:51)
[2019-03-12 11:30] LABS: #Eosinphils 0.2 thou/uL (0.0-0.7); #Lymphocytes 1.6 thou/uL (1.20-3.40); #Monocytes 0.5 thou/uL (0.11-0.59); #Neutrophils 2.8 thou/uL (1.40-6.50); %Basophils 0.9 % (0.0-1.0); %Eosinophils 3.3 % (0.0-10.0); %Monocytes 9.2 % (0.0-10.0); %Neutrophils 55.8 % (42.0-75.0); Hemoglobin 14.2 g/dL (14.0-18.0); Mean Corpuscular HGB CONC 34.1 g/dL (32.0-36.0); Mean Corpuscular Hemoglobin 30.9 pg (27.0-31.0); Mean Corpuscular Volume 90.6 fL (78.0-98.0); Mean Platelet Volume 8.2 fL (7.4-10.4); Platelet Count 245 thou/uL (130-400); RBC Distribution Width 13.1 % (11.5-14.5); Red Blood Cell (RBC) Count 4.59 mill/uL (4.70-6.10)
--- NOTE | 2019-03-12 11:36 | RAD ---
EXAM: CHEST ONE VIEW HISTORY: Left-sided chest pain. Crushed by a trailer. COMPARISON: 11/12/2018. FINDINGS: Previously noted lines and tubes been removed. Postsurgical changes related to CABG are noted. The ca rdiac silhouette and pulmonary vasculature are within normal limits. The lungs are clear. No pneumothorax or pleural effusion is seen on this exam. The osseous structures are intact. IMPRESSION: No acute cardiopulmonary process.
[2019-03-12 11:50] LABS: ALT (SGPT) 20 U/L (8-55); AST (SGOT) 22 U/L (5-34); Albumin 4.4 g/dL (3.4-4.8); Alkaline Phosphatase 72 U/L (40-110); Anion Gap 11 mmol/L (10-20); BUN (Urea Nitrogen) 15 mg/dL (8.4-25.7); Bilirubin, Total 1.1 mg/dL (0.2-1.2); CK (CPK) 112 U/L (30-200); Calc. Creatinine Clearance 0 mL/min (70-130); Calcium 9.8 mg/dL (7.8-10.44); Carbon Dioxide 25 mmol/L (23-31); Chloride 104 mmol/L (98-107); Estimated GFR-MDRD Greater than 90; Globulin 2.9 g/dL (2.4-3.5); Glucose 141 mg/dL (83-110); Potassium 4.2 mmol/L (3.5-5.1); Protein, Total 7.3 g/dL (5.8-8.1); Sodium 136 mmol/L (136-145)
--- NOTE | 2019-03-12 11:58 | CT ---
EXAM: CT of the chest with IV contrast CT of the abdomen and pelvis with IV contrast HISTORY: Level 2 trauma. Patient was pinned by a trailer. COMPARISON: None FINDINGS: CT CHEST: Mediastinum: Postsurgical changes related to CABG are noted. No mediastinal hematoma is seen. There i s no lymphadenopathy. Vessels: There are no findings to suggest an aortic injury. Vascular calcifications are seen in the t horacic aorta as well as involving the coronary arteries. Lungs: Atelectasis is present at the left lung base. Scattered thin-walled cysts are seen in the lung s bilaterally. No consolidation, mass, or pulmonary nodule is seen in the lungs bilaterally. There is minimal linear and slight nodular density seen in the right upper lobe near the level of the major fissure. This is likely related to a focal area of scarring as opposed to a pulmonary nodule given the appearance on coronal reformatted images. Pleural space: No pneumothorax or pleural effusion. Osseous structures: Evidence of median sternotomy is noted. No fracture is seen. Chest wall: Within normal limits. CT ABDOMEN/PELVIS: Liver: Within normal limits. Gallbladder: Within normal limits for CT appearance. Spleen: Within normal limits. Pancreas: Within normal limits. Adrenal glands: Within normal limits. Kidneys: A nonobstructing 4 mm calculus seen in the midportion left kidney. The kidneys otherwise hav e a normal CT appearance for Urinary bladder: Within normal limits. Vessels: Vascular calcifications are seen abdominal aorta and involving the iliac arteries. The left common iliac artery is ectatic, there is focal fusiform aneurysmal dilatation of the distal right common iliac artery which measures 2.3 cm. There are no findings to suggest an aortic injury. Pelvis: No focal mass or abnormality. Reproductive organs: Within normal limits for the patient's age. Bowel: There is colonic diverticulosis predominantly involving the sigmoid colon. The appendix is vis ualized and normal in caliber. Peritoneum: No free air or free fluid. Retroperitoneum: No lymphadenopathy. Osseous structures: Degenerative changes are seen in the spine. The vertebral body heights are within normal limits. No fracture or subluxation is seen involving the thoracic or lumbar spine. There is fusion of the L5-S1 vertebral bodies. No fracture seen involving the pelvis. IMPRESSION: 1. No acute findings in the chest, abdomen, or pelvis. 2. No evidence of acute osseous abnormality of the thoracic or lumbar spine. 3. 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 4. Colonic diverticulosis. 5. Nonobstructing left renal calculus. 6. Above findings discussed with Dr. Peres in the emergency department on 03/12/2019 1154 hours.
[2019-03-12] MEDS ORDERED: ISOVUE-370 76%-LOCM 1 ML ONE (13:17)
--- NOTE | 2019-03-14 17:19 | EKG ---
Test Reason : Blood Pressure : / mmHG Vent. Rate : 075 BPM Atrial Rate : 075 BPM P-R Int : 158 ms QRS Dur : 086 ms QT Int : 404 ms P-R-T Axes : 053 001 065 degrees QTc Int : 451 ms Normal sinus rhythm Possible Left atrial enlargement Possible Inferior infarct , age undetermined Abnormal ECG Confirmed by KAUSHAL VILLARREAL D.O. ([id number]), research editor KELLY PEREZ ([id number]) on 03/14/2019 5:19:38 PM Referred By: Confirmed By:KAUSHAL VILLARREAL D.O.
== END 2019-03-12 13:08 | disposition home or self-care (01) ==
LOC: ERS 11:09
DX: S30.1XXA Contusion of abdominal wall, initial encounter (principal); S20.212A Contusion of left front wall of thorax, initial encounter; V99.XXXA Unspecified transport accident, initial encounter
CPT/HCPCS: 36415; 71045; 71260; 74177; 80053; 82550; 83605; 85025; 93005; 96374; 96375; 96376; J2270; J2405; Q9966

== ENCOUNTER 2019-07-12 15:16 | Outpatient (CLI) | payer BC, MEDICARE ==
--- NOTE | 2019-07-12 15:46 | RAD ---
EXAM: Chest PA and lateral: HISTORY: Cardiac COMPARISON: 03/12/2019 FINDINGS: Vascular rings and sternotomy wires are noted. Heart: Normal cardiac silhouette Aorta: Unremarkable Pulmonary vessels: Normal Costophrenic angles: Costophrenic angles are clear. Lungs: No consolidation or masses. Chronic lung parenchymal changes are noted. Pneumothorax: No pneumothorax Osseous structures: No osseous abnormalities IMPRESSION: No acute cardiopulmonary process.
== END 2019-07-12 15:17 | disposition home or self-care (01) ==
LOC: BICRAD 15:16
PROVIDERS: ATTEND Family Medicine
DX: J40 Bronchitis, not specified as acute or chronic (principal)
CPT/HCPCS: 36415; 71046; 80053; 85025

== ENCOUNTER 2020-09-11 10:32 | Outpatient (CLI) | payer BC, MEDICARE ==
[2020-09-11 10:49] LABS: Estimated GFR-MDRD - POC Greater than 90
[2020-09-11] MEDS ORDERED: Iopamidol-370 76% 500 ML 1 ML ONE (12:10)
== END 2020-09-11 10:33 | disposition home or self-care (01) ==
LOC: BICCT 10:32
PROVIDERS: ATTEND Physician Assistant Medical
DX: R14.0 Abdominal distension (gaseous) (principal); K85.90 Acute pancreatitis without necrosis or infection, unspecified; K80.42 Calculus of bile duct with acute cholecystitis without obstruction; R53.83 Other fatigue; I71.4 Abdominal aortic aneurysm, without rupture; I72.3 Aneurysm of iliac artery; K57.30 Diverticulosis of large intestine without perforation or abscess without bleeding
CPT/HCPCS: 74177; 82565; Q9967

== ENCOUNTER 2020-11-28 07:56 | Outpatient (CLI) | payer BC, MEDICARE | END 2020-11-28 07:57 | disposition home or self-care (01) | LOC: TBSIIMAG 07:56 | PROVIDERS: ATTEND Orthopaedic Surgery | DX: M75.41 Impingement syndrome of right shoulder (principal); M75.111 Incomplete rotator cuff tear or rupture of right shoulder, not specified as traumatic; M19.011 Primary osteoarthritis, right shoulder; M75.91 Shoulder lesion, unspecified, right shoulder ==

== ENCOUNTER 2020-12-17 12:55 | Outpatient (CLI) | payer BC, MEDICARE ==
[2020-12-17 14:53] LABS: Anion Gap 11 mmol/L (10-20); BUN (Urea Nitrogen) 14 mg/dL (8.4-25.7); Calc. Creatinine Clearance 0 mL/min (70-130); Calcium 10.1 mg/dL (7.8-10.44); Carbon Dioxide 29 mmol/L (23-31); Chloride 103 mmol/L (98-107); Glucose 131 mg/dL (83-110); Potassium 5.1 mmol/L (3.5-5.1); Sodium 138 mmol/L (136-145)
[2020-12-17 15:11] LABS: #Eosinphils 0.3 10x3/uL (0.0-0.5); #Monocytes 0.7 10x3/uL (0.0-1.1); #Neutrophils 3.7 10x3/uL (1.5-8.4); %Basophils 0.5 % (0.0-2.0); %Eosinophils 4.6 % (0.0-6.0); %Lymphocytes 24.7 % (18.0-47.0); %Monocytes 11.6 % (0.0-10.0); %Neutrophils 58.3 % (40.0-75.0); Hemoglobin 13.8 g/dL (13.5-17.5); Mean Corpuscular HGB CONC 33.1 g/dL (32.0-36.0); Mean Corpuscular Hemoglobin 31.4 pg (27.0-33.0); Mean Corpuscular Volume 94.8 fl (81.2-95.1); Platelet Count 262 10x3/uL (150-450); RBC Distribution Width 12.9 % (11.5-14.5); White Blood Cell (WBC) Count 6.3 10x3/uL (3.5-10.5)
== END 2020-12-17 12:56 | disposition home or self-care (01) ==
LOC: LABBT 12:55
PROVIDERS: ATTEND Orthopaedic Surgery
DX: Z01.818 Encounter for other preprocedural examination (principal); S46.011A Strain of muscle(s) and tendon(s) of the rotator cuff of right shoulder, initial encounter
CPT/HCPCS: 80048; 85025; 93005; 93010

== ENCOUNTER 2021-02-14 13:39 | Emergency (ER) | payer MEDICARE, BC ==
[~2021-02-14 13:39] MED LIST: Iopamidol-370 76% 500 ML 1 ML ONE
[2021-02-14 16:03] LABS: #Eosinphils 0.1 thou/uL (0.0-0.7); #Lymphocytes 1.5 thou/uL (1.20-3.40); #Neutrophils 4.2 thou/uL (1.40-6.50); %Basophils 0.3 % (0.0-1.0); %Lymphocytes 21.9 % (21.0-51.0); %Monocytes 14.2 % (0.0-10.0); %Neutrophils 61.6 % (42.0-75.0); Hemoglobin 13.7 g/dL (14.0-18.0); Mean Corpuscular HGB CONC 34.5 g/dL (32.0-36.0); Mean Corpuscular Hemoglobin 32.8 pg (27.0-31.0); Mean Corpuscular Volume 94.9 fL (78.0-98.0); Mean Platelet Volume 6.8 fL (7.4-10.4); Platelet Count 404 thou/uL (130-400); RBC Distribution Width 11.5 % (11.5-14.5); Red Blood Cell (RBC) Count 4.18 mill/uL (4.70-6.10); White Blood Cell (WBC) Count 6.8 thou/uL (4.8-10.8)
[2021-02-14 16:17] LABS: ALT (SGPT) 19 U/L (8-55); AST (SGOT) 18 U/L (5-34); Albumin 4.1 g/dL (3.4-4.8); Alkaline Phosphatase 77 U/L (40-110); Anion Gap 12 mmol/L (10-20); BUN (Urea Nitrogen) 12 mg/dL (8.4-25.7); Calc. Creatinine Clearance 0 mL/min (70-130); Calcium 9.6 mg/dL (7.8-10.44); Carbon Dioxide 30 mmol/L (23-31); Chloride 99 mmol/L (98-107); Globulin 3.2 g/dL (2.4-3.5); Glucose 120 mg/dL (83-110); Lipase 22 U/L (8-78); Potassium 4.4 mmol/L (3.5-5.1); Protein, Total 7.3 g/dL (5.8-8.1); Sodium 137 mmol/L (136-145)
[2021-02-14] MEDS ORDERED: Ondansetron PF 4 MG/2 ML Vial ONE (17:16)
[2021-02-14] MEDS ORDERED: cefTRIAXone\\ROCEPHIN 2 GM VIAL ONE (19:20)
[2021-02-14 19:35] LABS: SARS-CoV-2 NAA Rapid Test Not Detected (NotDetected)
[2021-02-14 20:51] LABS: Bilirubin Negative (Negative); Blood, Urine Trace (Negative); Clarity Turbid (Clear); Glucose, Urine (Dipstick) Normal (Negative); Ketone, Urine Negative (Negative); Leukocyte 500 Leu/uL (Negative); Nitrite Negative (Negative); Protein, Urine (Dipstick) Negative (Neg-Trace); Specific Gravity, Urine 1.029 (1.002-1.036); Urobilinogen Normal mg/dL (Less than 2); WBC/HPF Greater than 50 HPF (0-3)
[2021-02-14 21:10] LABS: Bacteria/HPF 2+ HPF (None Seen); Squamous Epithelial 0-3 HPF (0-3)
== END 2021-02-14 21:46 | disposition home or self-care (01) ==
LOC: ERS 13:39
DX: N10 Acute pyelonephritis (principal); I48.91 Unspecified atrial fibrillation; K21.9 Gastro-esophageal reflux disease without esophagitis; E78.5 Hyperlipidemia, unspecified; Z79.82 Long term (current) use of aspirin; Z79.899 Other long term (current) drug therapy
CPT/HCPCS: 74177; 80053; 83605; 83690; 85025; 87040; 87077; 87086; 87186; U0002; 36415; 81003; 81015; 96374; 96375; J0696; J2405; Q9967

== ENCOUNTER 2021-03-03 14:25 | Outpatient (CLI) | payer MEDICARE, BC ==
[2021-03-03 14:43] LABS: Estimated GFR-MDRD - POC Greater than 90
== END 2021-03-03 14:26 | disposition home or self-care (01) ==
LOC: BICCT 14:25
PROVIDERS: ATTEND Family Medicine
DX: N12 Tubulo-interstitial nephritis, not specified as acute or chronic (principal); N20.0 Calculus of kidney; I71.4 Abdominal aortic aneurysm, without rupture
CPT/HCPCS: 74170; 82565

== ENCOUNTER 2021-05-20 12:11 | Outpatient (CLI) | payer MEDICARE, BC | END 2021-05-20 12:12 | disposition home or self-care (01) | LOC: TBSIIMAG 12:11 | PROVIDERS: ATTEND Family Medicine | DX: M47.22 Other spondylosis with radiculopathy, cervical region (principal) | CPT/HCPCS: 72141 ==

== ENCOUNTER 2021-11-13 12:25 | Outpatient (CLI) | payer MEDICARE, BC | END 2021-11-13 12:26 | disposition home or self-care (01) | LOC: BICRAD 12:25 | PROVIDERS: ATTEND Family Medicine | DX: R05.9 Cough, unspecified (principal) | CPT/HCPCS: 71046 ==

== ENCOUNTER 2022-07-12 18:12 | Emergency (ER) | payer OTHER, MEDICARE, BC ==
[2022-07-12 18:37] LABS: #Eosinphils 0.3 thou/uL (0.0-0.7); #Lymphocytes 2.2 thou/uL (1.20-3.40); #Monocytes 0.8 thou/uL (0.11-0.59); #Neutrophils 5.1 thou/uL (1.40-6.50); %Basophils 0.1 % (0.0-1.0); %Eosinophils 3.5 % (0.0-10.0); %Lymphocytes 26.1 % (21.0-51.0); %Neutrophils 61.3 % (42.0-75.0); Hemoglobin 14.8 g/dL (14.0-18.0); Mean Corpuscular HGB CONC 34.2 g/dL (32.0-36.0); Mean Corpuscular Hemoglobin 32.1 pg (27.0-31.0); Mean Platelet Volume 7.9 fL (7.4-10.4); Platelet Count 211 10x3/uL (130-400); RBC Distribution Width 12.1 % (11.5-14.5); White Blood Cell (WBC) Count 8.4 10x3/uL (4.8-10.8)
[2022-07-12] MEDS ORDERED: Morphine 4 MG/ML VIAL ONE (18:46)
[2022-07-12] MEDS ORDERED: Ketorolac Tromethamine 30 MG/ML VIAL ONE (19:40)
[2022-07-12 20:02] LABS: Chloride 101 mmol/L (98-107)
[2022-07-12 20:03] LABS: Calcium 9.1 mg/dL (7.8-10.44); Potassium 3.9 mmol/L (3.5-5.1); Sodium 134 mmol/L (136-145)
[2022-07-12 20:04] LABS: Globulin 2.6 g/dL (2.4-3.5); Glucose 107 mg/dL (83-110); Protein, Total 6.6 g/dL (5.8-8.1)
[2022-07-12 20:05] LABS: Anion Gap 14 mmol/L (10-20); Carbon Dioxide 23 mmol/L (23-31)
[2022-07-12 20:07] LABS: Alkaline Phosphatase 55 U/L (40-110); Calc. Creatinine Clearance 0 mL/min (70-130); Estimated GFR 94
[2022-07-12 20:08] LABS: BUN (Urea Nitrogen) 16 mg/dL (8.4-25.7)
[2022-07-12 20:09] LABS: AST (SGOT) 23 U/L (5-34)
[2022-07-12 20:10] LABS: ALT (SGPT) 26 U/L (8-55)
[2022-07-12] MEDS ORDERED: Dexamethasone 10 MG/ML VIAL ONE (21:38)
== END 2022-07-12 21:54 | disposition home or self-care (01) ==
LOC: ERS 18:12
DX: S40.012A Contusion of left shoulder, initial encounter (principal); S30.0XXA Contusion of lower back and pelvis, initial encounter; V80.919A Animal-rider injured in unspecified transport accident, initial encounter; Y93.I9 Activity, other involving external motion
CPT/HCPCS: 36415; 71260; 74177; 80053; 85025; 96374; 96375; J1100; J1885; J2270; Q9967

== ENCOUNTER 2022-07-16 13:14 | Outpatient (CLI) | payer MEDICARE, BC | END 2022-07-16 13:15 | disposition home or self-care (01) | LOC: TBSIIMAG 13:14 | PROVIDERS: ATTEND Family Medicine | DX: M51.16 Intervertebral disc disorders with radiculopathy, lumbar region (principal); M47.26 Other spondylosis with radiculopathy, lumbar region; I70.0 Atherosclerosis of aorta; I71.43 Infrarenal abdominal aortic aneurysm, without rupture | CPT/HCPCS: 72100; 72148 ==

== ENCOUNTER 2022-09-14 10:03 | Outpatient (CLI) | payer MEDICARE, BC ==
[2022-09-14 11:44] LABS: #Eosinphils 0.2 10x3/uL (0.0-0.5); #Monocytes 0.7 10x3/uL (0.0-1.1); #Neutrophils 2.6 10x3/uL (1.5-8.4); %Basophils 0.4 % (0.0-2.0); %Eosinophils 4.3 % (0.0-6.0); %Lymphocytes 30.3 % (18.0-47.0); %Monocytes 14.1 % (0.0-10.0); %Neutrophils 50.5 % (40.0-75.0); Hemoglobin 13.4 g/dL (13.5-17.5); Mean Corpuscular HGB CONC 33.3 g/dL (32.0-36.0); Mean Corpuscular Hemoglobin 31.8 pg (27.0-33.0); Mean Corpuscular Volume 95.7 fl (81.2-95.1); Mean Platelet Volume 10.2 fl (7.4-10.4); Platelet Count 245 10x3/uL (150-450); RBC Distribution Width 13.3 % (11.5-14.5); Red Blood Cell (RBC) Count 4.21 10x6/uL (4.32-5.72); White Blood Cell (WBC) Count 5.1 10x3/uL (3.5-10.5)
[2022-09-14 11:57] LABS: INR-International Normal Ratio 0.9; Prothrombin Time 10.1 sec (9.5-12.1)
[2022-09-14 12:03] LABS: Anion Gap 16 mmol/L (10-20); BUN (Urea Nitrogen) 15 mg/dL (8.4-25.7); Calc. Creatinine Clearance 0 mL/min (70-130); Calcium 9.2 mg/dL (7.8-10.44); Carbon Dioxide 24 mmol/L (23-31); Chloride 105 mmol/L (98-107); Estimated GFR 92; Glucose 105 mg/dL (83-110); Potassium 4.9 mmol/L (3.5-5.1); Sodium 140 mmol/L (136-145)
== END 2022-09-14 10:04 | disposition home or self-care (01) ==
LOC: LABBT 10:03
PROVIDERS: ATTEND Orthopaedic Surgery
DX: Z01.818 Encounter for other preprocedural examination (principal); M19.011 Primary osteoarthritis, right shoulder; I10 Essential (primary) hypertension; E78.2 Mixed hyperlipidemia
CPT/HCPCS: 36415; 80048; 80061; 80076; 85025; 85610; 93005; 93010

== ENCOUNTER 2022-09-17 05:39 | Observation (INO) | payer MEDICARE, BC ==
[2022-09-16 11:08] VITALS: BMI 25.4
[2022-09-17] MEDS ORDERED: Vancomycin (BATCH) 1.5 GRAM/300 ML BAG ONE (05:51)
[2022-09-17] MEDS ORDERED: Sodium Chloride 0.9% 100 ML ONE ×2 (05:51→06:51)
[2022-09-17] MEDS ORDERED: Tranexamic Acid 1,000 MG/10 ML VIAL ONE (05:51)
[2022-09-17] MEDS ORDERED: Fentanyl 250 MCG/5 ML VIAL ONE (06:16)
[2022-09-17] MEDS ORDERED: SUGAMMADEX SODIUM 200 MG/2 ML VIAL ONE (06:17)
[2022-09-17] MEDS ORDERED: CEFAZOLIN 2 GM VIAL ONE (06:51)
[2022-09-17] MEDS ORDERED: GLYCOPYRROLATE/PF 0.2 MG/ML VIAL ONE (07:23)
[2022-09-17] MEDS ORDERED: Dexamethasone 20 MG/5 ML VIAL ONE (07:23)
[2022-09-17] MEDS ORDERED: Ondansetron PF 4 MG/2 ML Vial ONE (07:23)
[2022-09-17] MEDS ORDERED: NEOSTIGMINE 3 MG/3 ML SYR 3 MG/3 ML SYRINGE ONE (07:23)
[2022-09-17] MEDS ORDERED: Rocuronium Bromide 10 MG/ML (10ML VIAL) ONE (07:23)
[2022-09-17] MEDS ORDERED: Bupivacaine HCl 0.5%/Epinephrine 1:200,000/PF 30 ml Vial ONE (07:23)
[2022-09-17] MEDS ORDERED: PROPOFOL 200 MG/20 ML VIAL ONE (07:23)
[2022-09-17] MEDS ORDERED: Bupivacaine PF 0.5% 30 ML VIAL ONE (07:52)
[2022-09-17] MEDS ORDERED: Zolpidem Tartrate 5 MG TAB PO PRN (08:00)
[2022-09-17] MEDS ORDERED: traMADol HCl 50 MG TAB PO PRN ×2 (08:00)
[2022-09-17] MEDS ORDERED: Ondansetron PF 4 MG/2 ML Vial IVP PRN (08:00)
[2022-09-17] MEDS ORDERED: Ropivacaine 0.2% 550 ML 550 ML NERVE BLCK SCH (08:00)
[2022-09-17] MEDS ORDERED: fentaNYL 50 mcg/mL 1 mL Vial SLOW IVP PRN (08:00)
[2022-09-17] MEDS ORDERED: HYDROcodone/Acetaminophen 5/325 mg Tablet PO PRN ×2 (08:00)
[2022-09-17] MEDS ORDERED: Promethazine HCl 25 MG/ML VIAL IM PRN (08:00)
[2022-09-17] MEDS ORDERED: fentaNYL 50 mcg/mL 1 mL Vial ONE (11:47)
[2022-09-17] MEDS: Ketorolac Tromethamine 30 MG/ML VIAL IVP SCH ×3 (12:00→23:42)
[2022-09-17] MEDS ORDERED: Ketorolac Tromethamine 30 MG/ML VIAL ONE (12:02)
[2022-09-17] MEDS ORDERED: Acetaminophen 325 MG TAB PO PRN (13:09)
[2022-09-17] MEDS ORDERED: diphenhydrAMINE 50 MG CAP PO PRN (13:09)
[2022-09-17] MEDS ORDERED: Methocarbamol 500 MG TAB PO PRN (13:09)
[2022-09-17] MEDS ORDERED: Milk Of Magnesia 30 ML UDCUP PO PRN (13:09)
[2022-09-17] MEDS ORDERED: Bisacodyl 10 MG SUPP PR PRN (13:09)
[2022-09-17] MEDS: Dextrose 5 %-0.45 % NaCl 1,000 ML IV SCH (13:33)
[2022-09-17] MEDS: CEFAZOLIN 2 GM in Sodium Chloride 0.9% 100 ML IVPB SCH ×2 (14:08→21:25)
[2022-09-17] MEDS ORDERED: GLUCOSAMINE CHONDROITIN PO SCH (21:00)
[2022-09-17] MEDS ORDERED: Aspirin 81 mg Enteric Coated Tablet PO SCH (21:00)
[2022-09-17] MEDS ORDERED: metFORMIN 500 MG TAB PO SCH (21:00)
[2022-09-17] MEDS: Famotidine 20 MG TAB PO SCH (21:24)
[2022-09-17] MEDS: Trospium 20 MG TAB PO SCH (21:24)
[2022-09-18] MEDS: Dextrose 5 %-0.45 % NaCl 1,000 ML IV SCH (04:40)
[2022-09-18] MEDS: Ketorolac Tromethamine 30 MG/ML VIAL IVP SCH ×2 (05:28→11:10)
[2022-09-18 08:29] VITALS: BP 136/77; TEMP 99
[2022-09-18] MEDS ORDERED: Rosuvastatin 20 MG TAB PO SCH (09:00)
[2022-09-18] MEDS: Famotidine 20 MG TAB PO SCH (09:34)
[2022-09-18] MEDS: Trospium 20 MG TAB PO SCH (09:35)
== END 2022-09-18 11:51 | disposition home or self-care (01) ==
LOC: SDC 05:39 → SURG A 12:34
PROVIDERS: ADMIT Orthopaedic Surgery; ATTEND Orthopaedic Surgery
PROC: 0RRJ00Z Replacement of Right Shoulder Joint with Reverse Ball and Socket Synthetic Substitute, Open Approach (ICD-10-PCS; principal; 2022-09-17)
DX: M19.011 Primary osteoarthritis, right shoulder (principal); I25.10 Atherosclerotic heart disease of native coronary artery without angina pectoris; E78.5 Hyperlipidemia, unspecified; I10 Essential (primary) hypertension; K21.9 Gastro-esophageal reflux disease without esophagitis; I48.0 Paroxysmal atrial fibrillation; R73.03 Prediabetes; G47.00 Insomnia, unspecified; N32.81 Overactive bladder; G47.33 Obstructive sleep apnea (adult) (pediatric); Z87.891 Personal history of nicotine dependence; Z79.82 Long term (current) use of aspirin; Z79.84 Long term (current) use of oral hypoglycemic drugs; Z79.899 Other long term (current) drug therapy; Z95.1 Presence of aortocoronary bypass graft; Z95.5 Presence of coronary angioplasty implant and graft; Z98.890 Other specified postprocedural states
CPT/HCPCS: 23472; 97116; A4306; C1713 ×6; C1776 ×4; J3010; J3370; J3490; 96365; 96366; 96367; 96375; 96376; G0378; J1100; J1885; J2405; J2704; J2795; S0020

== ENCOUNTER 2025-03-08 10:42 | Outpatient (CLI) | payer MEDICARE, BC | END 2025-03-08 10:43 | disposition home or self-care (01) | LOC: BICRAD 10:42 | PROVIDERS: ATTEND Family Medicine | DX: J44.1 Chronic obstructive pulmonary disease with (acute) exacerbation (principal) | CPT/HCPCS: 71046 ==